=== PATIENT | female | born 1960 | race Caucasian/White ===

== ENCOUNTER 2017-09-09 03:22 | Emergency (ER) | payer OTHER ==
[2017-09-09] MEDS ORDERED: Acetaminophen 500 MG TAB ONE (06:36)
--- NOTE | 2017-09-09 07:58 | RAD ---
RIGHT FOOT 3 VIEWS: HISTORY: Injury, right foot pain. FINDINGS/IMPRESSION: No acute fracture or dislocation is identified. Calcaneal spurs are present. POS: GOLDIE
== END 2017-09-09 06:51 | disposition home or self-care (01) ==
LOC: ERS 03:22
DX: S90.31XA Contusion of right foot, initial encounter (principal); R11.0 Nausea; K21.9 Gastro-esophageal reflux disease without esophagitis; E78.5 Hyperlipidemia, unspecified; F32.9 Major depressive disorder, single episode, unspecified; F17.210 Nicotine dependence, cigarettes, uncomplicated; Z79.899 Other long term (current) drug therapy; W20.8XXA Other cause of strike by thrown, projected or falling object, initial encounter

== ENCOUNTER 2017-10-01 12:22 | Observation (INO) | payer OTHER ==
[2017-10-01] MEDS ORDERED: Sodium Chloride 0.9% 10 ML ONE (12:36)
--- NOTE | 2017-10-01 12:59 | PDOC.FPRHP ---
- History of Present Illness Chief Complaint: dehydration, abnormal wt loss, diarrhea History of Present Illness: This stable 55 yo F with pertinent PMH of morbid obesity, gastric bypass in 1992 , GERD, HTN, Incontinince, COPD, Gastric Ulcer, and depression presents for evaluation of dehydration, diarrhea, and abdominal pain. Patient states she has not been able to eat because of watery diarrhea and stomach. This has been getting progressively worse over 2 weeks. Nothing seems to help. Stacy with urination about a week or so. Increased urinary frequency, incontinent for about 1 week. Generalized pain, comes on randomly. 9/10 pain at the worse. Patient states she has lost about 20 lbs. over the last 2weeks. ED Course: direct admit - Allergies/Adverse Reactions Allergies Allergy/AdvReac Type Severity Reaction Status Date / Time aspirin Allergy Verified 10/01/17 13:03 heparin (porcine) Allergy Verified 10/01/17 13:03 [heparin,porcine] ketorolac tromethamine Allergy Verified 10/01/17 13:03 [From Toradol] metoclopramide HCl Allergy Verified 10/01/17 13:03 [From Reglan] NSAIDS (Non-Steroidal Allergy Verified 10/01/17 13:03 Anti-Inflamma ondansetron HCl Allergy Verified 10/01/17 13:03 [From Zofran (as hydrochloride)] Penicillins Allergy Verified 10/01/17 15:29 prochlorperazine Allergy Verified 10/01/17 13:03 [From Compazine] prochlorperazine edisylate Allergy Verified 10/01/17 13:03 [From Compazine] prochlorperazine maleate Allergy Verified 10/01/17 13:03 [From Compazine] - Home Medications Medication Instructions Recorded Confirmed Type Esomeprazole Magnesium [NexIUM] 40 mg PO BID 05/18/15 10/01/17 History Hyoscyamine Sulfate [Levsin SL] 0.125 mg SL Q6HR PRN 05/18/15 10/01/17 History Promethazine HCl 25 mg PO BID 05/18/15 10/01/17 History Simvastatin 40 mg PO HS 05/18/15 10/01/17 History Cetirizine HCl 10 mg PO DAILY 10/01/17 10/01/17 History DULoxetine [Cymbalta] 30 mg PO DAILY 10/01/17 10/01/17 History DULoxetine [Cymbalta] 30 mg PO DAILY 10/01/17 10/01/17 History Ipratropium-Albuterol [Combivent] 1 puff INH BID 10/01/17 10/01/17 History Loperamide HCl [Loperamide] 2 mg PO TID 10/01/17 10/01/17 History Methocarbamol 750 mg PO Q12HR PRN 10/01/17 10/01/17 History Ranitidine HCl 300 mg PO DAILY 10/01/17 10/01/17 History Sucralfate [Carafate] 1 gm PO QID 10/01/17 10/01/17 History hydrOXYzine HCl [Hydroxyzine HCl] 25 mg PO HS PRN 10/01/17 10/01/17 History - History PMHx: morbid obesity, GERD, HTN, Incontinince, COPD, Gastric Ulcer PSHx: appendectomy, cholecystectomy, gastric bypass FHx: Social: current 1ppd smoker for 20 years, no alcohol, no drugs, lives at home alone, needs help getting home health - Review of Systems General: reports: weight/appetite/sleep changes (20lbs weight), fatigue. denies : fever/chills Eyes: denies: eye pain, vision changes ENT: denies: nasal congestion Respiratory: reports: exercise intolerance. denies: cough, shortness of breath Cardiovascular: denies: chest pain, palpitation, orthopnea Gastrointestinal: reports: nausea, diarrhea, abdominal pain. denies: vomiting, GI bleeding Genitourinary: reports: incontinence, dysuria Skin: denies: rashes, itching Musculoskeletal: denies: pain, tenderness Neurological: denies: numbness, weakness Psychological: denies: anxiety, depression - Vital signs BP: [137/69] HR: [86] RR: [20] Tmax: [98.8] Pox: [96]% on [RA] Wt: [117] - Physical Exam Constitutional: NAD, awake, alert and oriented HEENT: normocephalic and atraumatic, PERRLA, EOMI, other (poor dentition, lips cracked, mouth is dry) Neck: supple, FROM Heart: RRR, normal S1/S2 Lungs: good air movement, other (mild wheezes) Abdomen: other (bowel sounds present, pain is to very light palpation in all regions, no rebound tenderness, [place] +) Musculoskeletal: normal structure, normal tone Neurological: no focal deficit, CN II-XII intact Skin: no rash/lesions, capillary refill <2 seconds Psychiatric: normal mood and affect FMR H&P: Results - Labs Result Diagrams: 10/01/17 13:03 10/01/17 13:03 FMR H&P: A/P - Problem List (1) Morbid obesity with BMI of 45.0-49.9, adult Status: Acute Code(s): E66.01 - MORBID (SEVERE) OBESITY DUE TO EXCESS CALORIES ; Z68.42 - BODY MASS INDEX (BMI) 45.0-49.9, ADULT (2) Tobacco abuse Status: Chronic Code(s): Z72.0 - TOBACCO USE (3) Dehydration Status: Acute Code(s): E86.0 - DEHYDRATION (4) UTI (urinary tract infection) Status: Acute - Plan This is a stable 56 yo F who presents with diarrhea and dehydration, along with UTI symptoms # Dehydration - 1 L NS bolus - 175 ml/hr NS - monitor vital signs - good cap refill # UTI - burning with urination, new incontinence - U/A, Ucx ordered - Rocephin 1g q 24 hr # Diarrhea - FOBT, lactoferrin, C diff assay - Phenergan for nausea, multiple assoc. allergies - history of gastric bypass - KUB to r/o free air or obstruction - CBC, CMP, lipase # Nausea - IV phenergan, multiple allergies including zofran, reglan # GERD - protonix PO # Social - difficulties with obtaining home health - CM consulted # PPx - SCDs, multiple allergies to anti-coag.s low risk # Code - full FMR H&P: Upper Level - Pertinent history 55 year old whtie female with PMH COPD, gastric ulcers, depression, HTN, and GERD p/w with complaint of diarrhea and not tolerating po for approximately 2 weeks. She states she has had periublical pain, suprapubic pain, dysuria, polyuria, incontinence, and heartburn as well as headache. She states urinary symptoms started first. She rates her pain as 9.5/10. She denies vomiting, hematochezia, melena, exacerbation or improvement of pain with meals, chest pain , and dyspnea.She does have intermittent abdominal pain. She also has a history of IBS. She was sent by Dr. Perez at [facility] as he noticed she had an 18 lb weight loss and was not tolerating po - Pertinent findings Exam: Gen: NAD, AAOx4. Obese. Sitting comfortably in bed. Does not appear stated age Eyes: PERRLA, EOMI, nonicteric ENT: MMM, oropharynx clear CV: RRR. No m/r/g. Pulses full and equal in all 4 extremities Resp: CTA-B, no WRR. Nonlabored. Abdomen: Diffusely tender to mild palpation. Nondistended. No guarding or rebound. BS positive x4. Ext: Trace edema bilaterally. Skin: No rash or ulcer. No palpable lesions Neuro: CNII-XII intact, no focal deficits Psych: Mood and affect appropriate - Plan Date/Time: 10/01/17 1257 56 year old white female presents with: 1) Probable viral gastroenteritis with volume depletion - Place on observation medical unit. IV fluids. Treat nausea. Patient has reported allergies to everything but Phenergan. She has a history of bleeding ulcers. Fecal occult blood, stool lactoferrin, C. diff ordered due to prolonged course of symptoms. KUB ordered due to diffuse tenderness and reported pain and heartburn. Vitals stable. Will give iv fluids - no evidence of acute kidney injury 2) Presumed UTI - UTI symptoms started at same time as other symptoms and may be source of many of her complaints. UA, UCx, blood cultures ordered. IV Rocephin started 3) Unintended weight loss - May be secondary to #1 and poor appetite. Will get FOBT. Manage nausea. Advance diet as tolerated 4) Tobacco abuse - Cessation advised 5) GERD - PPI 6) CAD s/p CABG - home meds 7) Morbid obesity - Outpatient follow up I, Geovanni Rodriguez DO, have evaluated this patient and agree with findings/plan as outlined by graduate intern resident. Pertinent changes/additions are listed here. Attending Addendum - Attending Addendum Date/Time: 10/30/17 2777 I personally evaluated the patient and discussed the management with Dr. Kirkland on 10/01/17 I agree with the History, Examination, Assessment and Plan documented above with any addition or exceptions noted below. 57 yo F with pertinent PMH of gastric bypass in 1993, GERD, HTN, Incontinince, COPD, Gastric Ulcer, and depression here with diarrhea and abdominal pain. Findings appear c/w Acute Enteritis likely viral, but multiple abdominal surgeries so consideration for physical alterations in normal GI transit considered.
[2017-10-01] MEDS ORDERED: Sodium Chloride 0.9% 1,000 ML IV SCH ×3 (13:00→15:06)
[2017-10-01] MEDS ORDERED: Acetaminophen 500 MG TAB PO PRN (13:00)
[2017-10-01 13:15] LABS: #Basophils 0.1 thou/uL (0.0-0.2); #Eosinphils 0.5 thou/uL (0.0-0.7); #Lymphocytes 3.8 thou/uL (1.20-3.40); #Monocytes 0.7 thou/uL (0.11-0.59); #Neutrophils 5.8 thou/uL (1.40-6.50); %Basophils 0.6 % (0.0-1.0); %Eosinophils 4.6 % (0.0-10.0); %Lymphocytes 34.6 % (21.0-51.0); %Monocytes 6.5 % (0.0-10.0); %Neutrophils 53.7 % (42.0-75.0); Hemoglobin 14.9 g/dL (12.0-16.0); Mean Corpuscular HGB CONC 33.8 g/dL (32.0-36.0); Mean Corpuscular Hemoglobin 29.5 pg (27.0-31.0); Mean Corpuscular Volume 87.3 fl (81.0-99.0); Mean Platelet Volume 7.9 fL (7.4-10.4); Platelet Count 337 thou/uL (130-400); RBC Distribution Width 12.3 % (11.5-14.5); Red Blood Cell (RBC) Count 5.05 mill/uL (4.20-5.40); White Blood Cell (WBC) Count 10.8 thou/uL (4.8-10.8)
[2017-10-01 13:34] LABS: Albumin 4.3 g/dL (3.5-5.0); Alkaline Phosphatase 94 U/L (40-150); Anion Gap 13 mmol/L (10-20); BUN (Urea Nitrogen) 10 mg/dL (9.8-20.1); Bilirubin, Total 0.7 mg/dL (0.2-1.2); Calc. Creatinine Clearance 153 mL/min (70-130); Calcium 10.4 mg/dL (7.8-10.44); Carbon Dioxide 23 mmol/L (22-29); Chloride 106 mmol/L (98-107); Estimated GFR-MDRD 78; Globulin 3.2 g/dL (2.4-3.5); Glucose 102 mg/dL (70-105); Magnesium 2.1 mg/dL (1.6-2.6); Potassium 3.5 mmol/L (3.5-5.1); Protein, Total 7.5 g/dL (6.0-8.3); Sodium 138 mmol/L (136-145)
[2017-10-01 13:35] LABS: AST (SGOT) 16 U/L (5-34)
[2017-10-01 13:36] LABS: ALT (SGPT) 12 U/L (8-55)
[2017-10-01 13:45] LABS: Lipase 29 U/L (8-78)
[2017-10-01] MEDS ORDERED: Acetaminophen 325 MG TAB PO PRN (14:01)
[2017-10-01] MEDS ORDERED: Loperamide HCl 2 MG CAP PO ONE (14:01)
[2017-10-01] MEDS ORDERED: Promethazine HCl 25 MG/ML VIAL IM/IV PRN (14:11)
[2017-10-01 14:15] LABS: Lactic Acid 1.4 mmol/L (0.5-2.2)
[2017-10-01] MEDS ORDERED: cefTRIAXone\\ROCEPHIN 1 GM in Sodium Chloride 0.9% 100 ML IVPB SCH (14:30)
[2017-10-01] MEDS ORDERED: hydrOXYzine 25 MG TAB PO PRN (14:58)
[2017-10-01] MEDS ORDERED: Loperamide HCl 2 MG CAP PO SCH (15:00)
[2017-10-01] MEDS ORDERED: cefTRIAXone\\ROCEPHIN 1 GM, Syringe 0.4 ML in Sterile Water 9.6 ML SLOW IVP SCH (15:00)
[2017-10-01 18:28] LABS: Bilirubin Small (Negative); Blood, Urine Small (Negative); Clarity CLOUDY (Clear); Glucose, Urine (Dipstick) Negative (Negative); Leukocyte Moderate (Negative); Nitrite Negative (Negative); Protein, Urine (Dipstick) 30 mg/dL (Neg-Trace); Specific Gravity, Urine 1.028 (1.002-1.036); Urobilinogen 0.2 mg/dL (0.2-1.0)
[2017-10-01 18:32] LABS: Pathc Cast-AUWi Flag 2.71 (0-2.49)
[2017-10-01 18:47] LABS: Bacteria/HPF 2+ HPF (None Seen); Hyaline Casts/LPF 4-6 HYALINE CAST LPF (0-3 Hyaline)
--- NOTE | 2017-10-01 19:09 | PDOC.EVN ---
Event Note - Event Note Event Note: Was called to bedside dt pt complaint of abdominal pain and request for morphine. Initial impression found pt laying in bed resting comfortably and in no acute distress. When asked about her symptoms pt indicated that she was having abdominal pain in across her lower abdomen. Pt reported TTP in LLQ, RLQ, RUQ, LUQ, and epigastrum. Auscultation found normal bowel sounds in all quadrants. During auscultation pressure similar to previous palpation was applied to abdomen without tenderness. My impression is that the patient is having cramps dt gastroenteritis, however opiate pain control is not indicated. I explained to the patient that opiates are not appropriate treatment for this pain, however I would write for [place] to help with cramping once she is able to provide a stool sample for the pending studies. Will order KUB for comparison to previous image.
--- NOTE | 2017-10-01 19:12 | RAD ---
PORTABLE AP ABDOMINAL RADIOGRAPH 10/01/17 HISTORY: Multiple abdominal surgeries. Rule out bowel obstruction. COMPARISON: Small bowel study on 02/23/03. Multiple postsurgical changes of the abdomen are seen with surgical clips overlying the abdomen and r adiopaque suture material overlying the left upper quadrant. Multiple ring-like densities overlie the lower abdomen and upper pelvis probably related to mesh material from prior study. There is an overall nonspecific bowel gas pattern. Gaseous distention of large and small loops of bow el are present. Calcifications overlie the pelvis also seen on prior exam likely related to phlebolit hs. Degenerative changes are seen in the spine with left convexed rotoscoliosis of the lumbar spine. IMPRESSION: 1. Nonspecific bowel gas pattern. 2. Postsurgical changes of the abdomen and pelvis. POS: GOLDIE
--- NOTE | 2017-10-01 20:04 | PDOC.EVN ---
Event Note - Event Note Event Note: Residents paged by floor again at about 18:45 that patient was still complaining of significant abdominal pain and was requesting to be seen by different physician, specifically senior doctor on service. I responded to page to evaluate patient. Bedside vital signs at time of exam were BP 137/69, pulse 86, resp 20, pulse ox 96% on RA, and temp 98.0. The patient was lying supine in bed. The patient reported significant abdominal pain that has been present for 2 weeks and was tearful stating that nobody was taking her seriously or treating her pain. She could not quantify or qualify her pain and could not offer a location for the source of her pain. The patient's abdomen was soft, with no guarding or rebound and mild suprapubic TTP, with positive bowel sounds. She, throughout the conversation, complained of both constipation and diarrhea. She stated that the only things that have helped her pain are morphine , stadol, and phenergan. The patient was given a dose of phenergan at 14:40 and was not able to receive repeat dosing until 20:40. The patient threatened that if she did not get adequate pain medication, she would take our her IV and leave the hospital. The patient's nurse, Juani, was present throughout the conversation. We attempted to calm the patient down stating that we wanted to treat her pain and were not at all ignoring her symptoms. We reviewed with the patient that narcotics were not appropriate at this time - the patient has had multiple abdominal surgeries and was complaining of constipation, putting her at risk of SBO or ileus. The patient was agreeable at times of the conversation but ultimately continued to demand stronger pain medication. The patient, patient's nurse, and myself agreed to attempt treatment with a K-pad and to reassess the patient's pain. We mentioned using an oral lidocaine medication like Bentyl or a GI cocktail and the patient again refused, wanting specific pain medication. I informed the patient that it was my medical advice that the patient continue to receive IVF for dehydration, antibiotics for a UTI, and possible further treatment pending stool studies. The patient ultimately agreed with the plan. The residents were then notified at about 19:45 that the patient had decided to leave the hospital AMA. AMA paperwork was being completed at the time the page was returned.
[2017-10-01] MEDS ORDERED: Docusate 100 MG CAP PO SCH (21:00)
[2017-10-01] MEDS ORDERED: Simvastatin 40 MG TAB PO SCH (21:00)
[2017-10-01] MEDS ORDERED: FLU VACC QS2017-18 36 mo. & older 0.5 ML SYRINGE IM ONE (21:00)
[2017-10-01] MEDS ORDERED: Promethazine 25 MG TAB PO SCH (21:00)
[2017-10-01 21:02] VITALS: BP 126/59; TEMP 97.9
[2017-10-02] MEDS ORDERED: Loratadine 10 MG TAB PO SCH (09:00)
[2017-10-02] MEDS ORDERED: DULoxetine 30 MG CAP PO SCH (09:00)
--- NOTE | 2017-10-03 15:31 | EKG ---
Test Reason : Blood Pressure : / mmHG Vent. Rate : 086 BPM Atrial Rate : 086 BPM P-R Int : 140 ms QRS Dur : 088 ms QT Int : 380 ms P-R-T Axes : 031 066 033 degrees QTc Int : 454 ms Normal sinus rhythm Normal ECG When compared with ECG of 07-NOV-2015 20:33, No significant change was found Confirmed by DR. Dimitris MARROQUIN ([id number]) on 10/03/2017 3:30:51 PM Referred By: MADHU Confirmed By:DR. Dimitris MARROQUIN
== END 2017-10-01 20:16 | disposition left against medical advice (07) ==
LOC: 3SE 12:22 → EEVIPCON 12:22
PROVIDERS: ADMIT Family Medicine; ATTEND Family Medicine
DX: R19.7 Diarrhea, unspecified (principal); E86.0 Dehydration; N39.0 Urinary tract infection, site not specified; K21.9 Gastro-esophageal reflux disease without esophagitis; J44.9 Chronic obstructive pulmonary disease, unspecified; F32.9 Major depressive disorder, single episode, unspecified; I10 Essential (primary) hypertension; I25.10 Atherosclerotic heart disease of native coronary artery without angina pectoris; F17.210 Nicotine dependence, cigarettes, uncomplicated; E66.01 Morbid (severe) obesity due to excess calories; Z68.42 Body mass index [BMI] 45.0-49.9, adult; Z88.8 Allergy status to other drugs, medicaments and biological substances; Z79.899 Other long term (current) drug therapy; Z98.84 Bariatric surgery status; Z95.1 Presence of aortocoronary bypass graft; Z53.21 Procedure and treatment not carried out due to patient leaving prior to being seen by health care provider
CPT/HCPCS: 36415; 74018; 80053; 81001; 83605; 83690; 83735; 84443; 85025; 87040; 93005; 93010; 96361; 96374; 96375; A4216; G0378; J0696; J2550

== ENCOUNTER 2018-07-27 20:12 | Emergency (ER) | payer OTHER ==
[2018-07-27] MEDS ORDERED: Acetaminophen 500 MG TAB ONE (21:08)
== END 2018-07-27 20:59 | disposition home or self-care (01) ==
LOC: ERS 20:12
DX: M54.32 Sciatica, left side (principal); I10 Essential (primary) hypertension; E78.5 Hyperlipidemia, unspecified; F17.210 Nicotine dependence, cigarettes, uncomplicated; F32.9 Major depressive disorder, single episode, unspecified; Z71.6 Tobacco abuse counseling
CPT/HCPCS: 99406

== ENCOUNTER 2018-08-16 14:53 | Outpatient (CLI) | payer OTHER | END 2018-08-16 14:54 | disposition home or self-care (01) | LOC: CTENTCT 14:53 | PROVIDERS: ATTEND Otolaryngology Plastic Surgery within the Head & Neck | DX: J32.9 Chronic sinusitis, unspecified (principal) | CPT/HCPCS: 70486 ==

== ENCOUNTER 2019-09-29 15:28 | Emergency (ER) | payer OTHER ==
[2019-09-29] MEDS ORDERED: Acetaminophen 500 MG TAB ONE (17:59)
== END 2019-09-29 18:02 | disposition home or self-care (01) ==
LOC: ERS 15:28
DX: T22.112A Burn of first degree of left forearm, initial encounter (principal); K21.9 Gastro-esophageal reflux disease without esophagitis; E78.5 Hyperlipidemia, unspecified; E78.00 Pure hypercholesterolemia, unspecified; F32.9 Major depressive disorder, single episode, unspecified; F17.210 Nicotine dependence, cigarettes, uncomplicated; X10.1XXA Contact with hot food, initial encounter
CPT/HCPCS: 99283

== ENCOUNTER 2022-05-26 02:34 | Emergency (ER) | payer OTHER ==
[2022-05-26] MEDS ORDERED: Mag-Al 1200 mg/1200 mg/30 ML UDCUP ONE (03:01)
[2022-05-26] MEDS ORDERED: Lidocaine Viscous Sol 2% 15 ml UD Cup ONE (03:01)
[2022-05-26 03:38] LABS: #Basophils 0.1 thou/uL (0.0-0.2); #Eosinphils 0.3 thou/uL (0.0-0.7); #Lymphocytes 3.3 thou/uL (1.20-3.40); #Neutrophils 10.3 thou/uL (1.40-6.50); %Basophils 0.5 % (0.0-1.0); %Monocytes 6.7 % (0.0-10.0); %Neutrophils 68.8 % (42.0-75.0); Mean Corpuscular HGB CONC 32.3 g/dL (32.0-36.0); Mean Corpuscular Hemoglobin 27.1 pg (27.0-31.0); Mean Corpuscular Volume 83.9 fl (78.0-98.0); Mean Platelet Volume 8.3 fL (7.4-10.4); Platelet Count 289 thou/uL (130-400); RBC Distribution Width 14.4 % (11.5-14.5); Red Blood Cell (RBC) Count 5.17 mill/uL (4.20-5.40)
[2022-05-26 03:58] LABS: ALT (SGPT) 10 U/L (8-55); AST (SGOT) 21 U/L (5-34); Alkaline Phosphatase 127 U/L (40-110); Anion Gap 14 mmol/L (10-20); BUN (Urea Nitrogen) 7 mg/dL (9.8-20.1); Bilirubin, Total 1.1 mg/dL (0.2-1.2); Calc. Creatinine Clearance 0 mL/min (70-130); Calcium 10.8 mg/dL (7.8-10.44); Carbon Dioxide 23 mmol/L (22-29); Chloride 101 mmol/L (98-107); Estimated GFR 80; Globulin 3.7 g/dL (2.4-3.5); Glucose 195 mg/dL (70-105); Lipase 21 U/L (8-78); Potassium 3.4 mmol/L (3.5-5.1); Protein, Total 7.7 g/dL (6.0-8.3); Sodium 135 mmol/L (136-145)
== END 2022-05-26 05:20 | disposition home or self-care (01) ==
LOC: ERS 02:34
DX: L03.311 Cellulitis of abdominal wall (principal); R11.2 Nausea with vomiting, unspecified; K21.9 Gastro-esophageal reflux disease without esophagitis; E78.5 Hyperlipidemia, unspecified; E78.00 Pure hypercholesterolemia, unspecified; F17.210 Nicotine dependence, cigarettes, uncomplicated
CPT/HCPCS: 36415; 80053; 83605; 83690; 85025

== ENCOUNTER 2022-05-26 14:17 | Inpatient (IN) | payer OTHER ==
[~2022-05-26 14:17] MED LIST: Iopamidol-370 76% 500 ML 1 ML ONE
[2022-05-26] MEDS ORDERED: Morphine 4 MG/ML VIAL ONE (15:06)
[2022-05-26] MEDS ORDERED: Clindamycin/D5W 900 mg/50 ml Premix Bag ONE (15:09)
[2022-05-26 15:12] LABS: #Basophils 0.1 thou/uL (0.0-0.2); #Eosinphils 0.4 thou/uL (0.0-0.7); #Monocytes 1.2 thou/uL (0.11-0.59); #Neutrophils 10.9 thou/uL (1.40-6.50); %Basophils 0.5 % (0.0-1.0); %Eosinophils 2.2 % (0.0-10.0); %Lymphocytes 24.3 % (21.0-51.0); %Monocytes 7.2 % (0.0-10.0); %Neutrophils 65.8 % (42.0-75.0); Mean Corpuscular HGB CONC 31.9 g/dL (32.0-36.0); Mean Corpuscular Hemoglobin 27.1 pg (27.0-31.0); Mean Platelet Volume 8.3 fL (7.4-10.4); Platelet Count 351 thou/uL (130-400); RBC Distribution Width 14.7 % (11.5-14.5); Red Blood Cell (RBC) Count 5.15 mill/uL (4.20-5.40); White Blood Cell (WBC) Count 16.6 thou/uL (4.8-10.8)
[2022-05-26] MEDS ORDERED: Promethazine HCl 25 MG in Sodium Chloride 0.9% 50 ML IVPB SCH (15:15)
[2022-05-26 15:24] LABS: INR-International Normal Ratio 1.2; PTT 35.8 sec (22.9-36.1); Prothrombin Time 15.3 sec (12.0-14.7)
[2022-05-26 15:34] LABS: ALT (SGPT) 11 U/L (8-55); AST (SGOT) 18 U/L (5-34); Albumin 4.1 g/dL (3.5-5.0); Alkaline Phosphatase 138 U/L (40-110); Anion Gap 14 mmol/L (10-20); BUN (Urea Nitrogen) 10 mg/dL (9.8-20.1); Bilirubin, Total 1.4 mg/dL (0.2-1.2); Calc. Creatinine Clearance 0 mL/min (70-130); Calcium 10.9 mg/dL (7.8-10.44); Carbon Dioxide 27 mmol/L (22-29); Chloride 99 mmol/L (98-107); Estimated GFR 67; Globulin 3.9 g/dL (2.4-3.5); Glucose 204 mg/dL (70-105); Potassium 3.5 mmol/L (3.5-5.1); Sodium 136 mmol/L (136-145)
[2022-05-26] MEDS ORDERED: VANCOMYCIN 2 GRAM/500 ML BAG 2 GM in Premix Bag 1 BAG IVPB SCH (17:15)
[2022-05-26 18:05] LABS: Lactic Acid 1.5 mmol/L (0.5-2.2)
[2022-05-26] MEDS ORDERED: Dextrose 50% Abboject 50 ML SYRINGE SLOW IVP PRN (19:40)
[2022-05-26] MEDS ORDERED: Dextrose 5% in Water 1,000 ML IV PRN (19:40)
[2022-05-26] MEDS ORDERED: Acetaminophen 325 MG TAB PO PRN (19:42)
[2022-05-26] MEDS ORDERED: HumaLOG 300 UNITS/3 ML VIAL SC PRN ×2 (19:45)
[2022-05-26 20:10] LABS: Hemoglobin A1c 7.3 % (4.0-6.0)
[2022-05-26 20:21] LABS: Magnesium 1.9 mg/dL (1.6-2.6)
[2022-05-26] MEDS: Lactated Ringer's 1,000 ML IV SCH (20:22)
[2022-05-26] MEDS ORDERED: HYDROcodone/Acetaminophen 5/325 mg Tablet PO PRN (20:41)
[2022-05-26] MEDS: Promethazine HCl 12.5 MG in Sodium Chloride 0.9% 50 ML IVPB PRN (21:18)
[2022-05-26] MEDS: Insulin Glargine 30 UNITS/0.3 ML VIAL SC SCH (21:28)
[2022-05-26] MEDS ORDERED: Polyethylene Glycol 3350 17 GM Packet PO PRN (21:47)
[2022-05-26] MEDS: Morphine 4 MG/ML VIAL SLOW IVP PRN (21:56)
[2022-05-26] MEDS ORDERED: Pantoprazole 40 MG VIAL IVP SCH (22:00)
[2022-05-26 23:08] VITALS: BMI 39.0
[2022-05-27] MEDS: Morphine 4 MG/ML VIAL SLOW IVP PRN ×4 (01:31→19:36)
[2022-05-27] MEDS: Lactated Ringer's 1,000 ML IV SCH ×4 (01:55→22:24)
[2022-05-27] MEDS: Promethazine HCl 12.5 MG in Sodium Chloride 0.9% 50 ML IVPB PRN ×2 (02:59→10:13)
[2022-05-27 06:59] LABS: #Basophils 0.1 thou/uL (0.0-0.2); #Eosinphils 0.5 thou/uL (0.0-0.7); #Lymphocytes 5.6 thou/uL (1.20-3.40); #Monocytes 1.1 thou/uL (0.11-0.59); #Neutrophils 6.6 thou/uL (1.40-6.50); %Basophils 0.7 % (0.0-1.0); %Eosinophils 3.3 % (0.0-10.0); %Lymphocytes 40.3 % (21.0-51.0); %Monocytes 8.1 % (0.0-10.0); %Neutrophils 47.7 % (42.0-75.0); Hemoglobin 12.3 g/dL (12.0-16.0); Mean Corpuscular HGB CONC 31.8 g/dL (32.0-36.0); Mean Corpuscular Hemoglobin 27.6 pg (27.0-31.0); Mean Corpuscular Volume 86.7 fl (78.0-98.0); Mean Platelet Volume 8.9 fL (7.4-10.4); Platelet Count 235 thou/uL (130-400); RBC Distribution Width 14.7 % (11.5-14.5); Red Blood Cell (RBC) Count 4.45 mill/uL (4.20-5.40); White Blood Cell (WBC) Count 13.9 thou/uL (4.8-10.8)
[2022-05-27 07:33] LABS: ALT (SGPT) 8 U/L (8-55); AST (SGOT) 15 U/L (5-34); Albumin 3.3 g/dL (3.5-5.0); Alkaline Phosphatase 108 U/L (40-110); Anion Gap 12 mmol/L (10-20); BUN (Urea Nitrogen) 8 mg/dL (9.8-20.1); Calc. Creatinine Clearance 160 mL/min (70-130); Calcium 9.7 mg/dL (7.8-10.44); Carbon Dioxide 23 mmol/L (22-29); Chloride 105 mmol/L (98-107); Estimated GFR 97; Globulin 3.1 g/dL (2.4-3.5); Glucose 119 mg/dL (70-105); Potassium 3.6 mmol/L (3.5-5.1); Protein, Total 6.4 g/dL (6.0-8.3); Sodium 136 mmol/L (136-145)
[2022-05-27] MEDS: Enoxaparin Sodium 40 MG/0.4 ML SYRINGE SC SCH (08:41)
[2022-05-27] MEDS: Pantoprazole 40 MG VIAL IVP SCH (08:43)
[2022-05-27] MEDS ORDERED: Promethazine HCl 25 MG/ML VIAL IM PRN (10:02)
[2022-05-27] MEDS: VANCOMYCIN 2 GRAM/500 ML BAG 2 GM in Premix Bag 1 BAG IVPB SCH ×2 (11:39→23:08)
[2022-05-27] MEDS ORDERED: Acetaminophen 325 MG TAB PO PRN (11:53)
[2022-05-27] MEDS ORDERED: diphenhydrAMINE 50 MG CAP PO PRN (12:42)
[2022-05-27] MEDS: Cefepime 2 GM in Sodium Chloride 0.9% 100 ML IVPB SCH (13:19)
[2022-05-27] MEDS: Gabapentin 100 MG CAP PO SCH ×3 (15:57→19:44)
[2022-05-27] MEDS: Insulin Glargine 30 UNITS/0.3 ML VIAL SC SCH (19:39)
[2022-05-27] MEDS: metFORMIN 500 MG TAB PO SCH (19:39)
[2022-05-27] MEDS ORDERED: hydrALAZINE 20 MG/ML VIAL SLOW IVP PRN (22:48)
[2022-05-27] MEDS: HYDROcodone/Acetaminophen 5/325 mg Tablet PO PRN (22:55)
[2022-05-27] MEDS ORDERED: hydrALAZINE 20 MG/ML VIAL SLOW IVP SCH (23:00)
[2022-05-28] MEDS: Cefepime 2 GM in Sodium Chloride 0.9% 100 ML IVPB SCH (01:08)
[2022-05-28] MEDS: HYDROcodone/Acetaminophen 5/325 mg Tablet PO PRN (04:44)
[2022-05-28] MEDS: Lactated Ringer's 1,000 ML IV SCH ×2 (05:03→08:14)
[2022-05-28] MEDS ORDERED: Levothyroxine Sodium 25 MCG TAB PO SCH (06:00)
[2022-05-28] MEDS ORDERED: Levothyroxine Sodium 112 MCG TAB PO SCH (06:00)
[2022-05-28 06:09] VITALS: TEMP 98.5
[2022-05-28 06:52] LABS: #Basophils 0.1 thou/uL (0.0-0.2); #Eosinphils 0.3 thou/uL (0.0-0.7); #Lymphocytes 2.8 thou/uL (1.20-3.40); #Monocytes 0.6 thou/uL (0.11-0.59); #Neutrophils 4.1 thou/uL (1.40-6.50); %Basophils 0.9 % (0.0-1.0); %Eosinophils 3.5 % (0.0-10.0); %Lymphocytes 35.6 % (21.0-51.0); %Monocytes 7.7 % (0.0-10.0); %Neutrophils 52.4 % (42.0-75.0); Hemoglobin 11.9 g/dL (12.0-16.0); Mean Corpuscular HGB CONC 31.7 g/dL (32.0-36.0); Mean Corpuscular Hemoglobin 27.4 pg (27.0-31.0); Mean Corpuscular Volume 86.5 fl (78.0-98.0); Mean Platelet Volume 8.5 fL (7.4-10.4); Platelet Count 219 thou/uL (130-400); RBC Distribution Width 14.6 % (11.5-14.5); Red Blood Cell (RBC) Count 4.34 mill/uL (4.20-5.40); White Blood Cell (WBC) Count 7.8 thou/uL (4.8-10.8)
[2022-05-28 07:14] LABS: ALT (SGPT) 10 U/L (8-55); AST (SGOT) 17 U/L (5-34); Albumin 3.3 g/dL (3.5-5.0); Alkaline Phosphatase 102 U/L (40-110); Anion Gap 11 mmol/L (10-20); BUN (Urea Nitrogen) 7 mg/dL (9.8-20.1); Bilirubin, Total 0.9 mg/dL (0.2-1.2); Calc. Creatinine Clearance 153 mL/min (70-130); Calcium 9.6 mg/dL (7.8-10.44); Carbon Dioxide 26 mmol/L (22-29); Chloride 104 mmol/L (98-107); Estimated GFR 93; Glucose 131 mg/dL (70-105); Potassium 3.5 mmol/L (3.5-5.1); Protein, Total 6.3 g/dL (6.0-8.3); Sodium 137 mmol/L (136-145)
[2022-05-28] MEDS: Pantoprazole 40 MG VIAL IVP SCH (08:13)
[2022-05-28] MEDS: metFORMIN 500 MG TAB PO SCH (08:13)
[2022-05-28] MEDS: Gabapentin 100 MG CAP PO SCH (08:13)
[2022-05-28] MEDS: Enoxaparin Sodium 40 MG/0.4 ML SYRINGE SC SCH (08:14)
[2022-05-28 08:29] VITALS: BP 174/97
[2022-05-28] MEDS ORDERED: DULoxetine 60 MG CAP PO SCH (09:00)
[2022-05-28] MEDS ORDERED: Ergocalciferol 1.25 MG(50,000 UNITS) CAP PO SCH (09:00)
[2022-05-28] MEDS ORDERED: Folic Acid 1 MG TAB PO SCH (09:00)
[2022-05-28 10:25] LABS: Vancomycin, Trough 20.9 ug/mL
[2022-05-28] MEDS ORDERED: Vancomycin 1.5 GRAM/300 ML BAG 1.5 GM in Premix Bag 1 BAG IVPB SCH (11:00)
== END 2022-05-28 11:33 | disposition home or self-care (01) | DRG 872 ==
LOC: ERS 14:17 → T4-B 18:18 → OBSVTOIN 05-28 09:23
PROVIDERS: ADMIT Student in an Organized Health Care Education/Training Program; ATTEND Student in an Organized Health Care Education/Training Program
DX: A41.9 Sepsis, unspecified organism (principal); L03.311 Cellulitis of abdominal wall; M79.3 Panniculitis, unspecified; Z20.822 Contact with and (suspected) exposure to COVID-19; E66.01 Morbid (severe) obesity due to excess calories; E11.9 Type 2 diabetes mellitus without complications; R94.31 Abnormal electrocardiogram [ECG] [EKG]; N20.0 Calculus of kidney; N28.1 Cyst of kidney, acquired; J44.9 Chronic obstructive pulmonary disease, unspecified; E78.5 Hyperlipidemia, unspecified; E03.9 Hypothyroidism, unspecified; K21.9 Gastro-esophageal reflux disease without esophagitis; F32.9 Major depressive disorder, single episode, unspecified; F43.10 Post-traumatic stress disorder, unspecified; G89.29 Other chronic pain; E83.52 Hypercalcemia; E55.9 Vitamin D deficiency, unspecified; Z88.8 Allergy status to other drugs, medicaments and biological substances; Z88.6 Allergy status to analgesic agent; Z88.0 Allergy status to penicillin; Z79.899 Other long term (current) drug therapy; Z91.14 Patient's other noncompliance with medication regimen; Z79.890 Hormone replacement therapy; Z79.84 Long term (current) use of oral hypoglycemic drugs; Z98.84 Bariatric surgery status; Z90.49 Acquired absence of other specified parts of digestive tract; Z87.11 Personal history of peptic ulcer disease; Z82.49 Family history of ischemic heart disease and other diseases of the circulatory system; Z87.891 Personal history of nicotine dependence; R11.2 Nausea with vomiting, unspecified; E78.00 Pure hypercholesterolemia, unspecified
CPT/HCPCS: 36415; 36416; 71045; 74177; 80053; 80202; 83036; 83605; 83615; 83690; 83735; 84484; 85025; 85610; 85730; 86850; 86900; 86901; 87040; 87631; 93005; 94640; 96365; 96366; 96367; 96372; 96375; 96376; 97139; 99284; C9113; G0378; J0360; J0692; J1650; J1815; J2270; J2550; J3370; J3490; J7120; Q9967; U0003; U0005

== ENCOUNTER 2022-08-23 03:54 | Emergency (ER) | payer OTHER ==
[2022-08-23 07:56] LABS: #Basophils 0.1 thou/uL (0.0-0.2); #Eosinphils 0.4 thou/uL (0.0-0.7); #Lymphocytes 3.3 thou/uL (1.20-3.40); #Monocytes 0.6 thou/uL (0.11-0.59); #Neutrophils 4.2 thou/uL (1.40-6.50); %Basophils 0.7 % (0.0-1.0); %Eosinophils 4.3 % (0.0-10.0); %Lymphocytes 38.3 % (21.0-51.0); %Neutrophils 49.7 % (42.0-75.0); Hemoglobin 11.8 g/dL (12.0-16.0); Mean Corpuscular HGB CONC 32.2 g/dL (32.0-36.0); Mean Corpuscular Hemoglobin 26.4 pg (27.0-31.0); Mean Corpuscular Volume 82.1 fl (78.0-98.0); Mean Platelet Volume 7.5 fL (7.4-10.4); Platelet Count 254 10x3/uL (130-400); RBC Distribution Width 15.1 % (11.5-14.5); Red Blood Cell (RBC) Count 4.47 mill/uL (4.20-5.40); White Blood Cell (WBC) Count 8.5 10x3/uL (4.8-10.8)
[2022-08-23 08:17] LABS: ALT (SGPT) 10 U/L (8-55); AST (SGOT) 21 U/L (5-34); Albumin 3.7 g/dL (3.5-5.0); Alkaline Phosphatase 112 U/L (40-110); Anion Gap 15 mmol/L (10-20); BUN (Urea Nitrogen) 6 mg/dL (9.8-20.1); Bilirubin, Total 0.8 mg/dL (0.2-1.2); CK (CPK) 53 U/L (29-168); Calc. Creatinine Clearance 0 mL/min (70-130); Carbon Dioxide 21 mmol/L (22-29); Chloride 105 mmol/L (98-107); Estimated GFR 100; Globulin 3.7 g/dL (2.4-3.5); Glucose 120 mg/dL (70-105); Lipase 29 U/L (8-78); Potassium 3.7 mmol/L (3.5-5.1); Protein, Total 7.4 g/dL (6.0-8.3); Sodium 137 mmol/L (136-145)
[2022-08-23 08:47] LABS: Bilirubin Negative (Negative); Blood, Urine Negative (Negative); Clarity Clear (Clear); Glucose, Urine (Dipstick) Normal (Negative); Ketone, Urine Negative (Negative); Leukocyte Negative Leu/uL (Negative); Nitrite Negative (Negative); Protein, Urine (Dipstick) Negative (Neg-Trace); Urobilinogen Normal mg/dL (Less than 2)
== END 2022-08-23 09:15 | disposition home or self-care (01) ==
LOC: ERS 03:54
DX: R53.1 Weakness (principal); K21.9 Gastro-esophageal reflux disease without esophagitis; E78.00 Pure hypercholesterolemia, unspecified; F17.210 Nicotine dependence, cigarettes, uncomplicated
CPT/HCPCS: 36415; 51701; 71045; 80053; 81003; 82550; 83690; 83880; 84484; 85025; 93005

== ENCOUNTER 2022-09-04 04:47 | Inpatient (IN) | payer OTHER ==
[2022-09-04] MEDS ORDERED: Morphine 4 MG/ML VIAL ONE (05:38)
[2022-09-04] MEDS ORDERED: Cefepime 2 GM VIAL ONE (05:39)
[2022-09-04 05:45] LABS: #Eosinphils 0.2 thou/uL (0.0-0.7); #Lymphocytes 2.5 thou/uL (1.20-3.40); #Monocytes 1.4 thou/uL (0.11-0.59); #Neutrophils 6.6 thou/uL (1.40-6.50); %Basophils 0.2 % (0.0-1.0); %Eosinophils 1.7 % (0.0-10.0); %Lymphocytes 23.7 % (21.0-51.0); %Monocytes 13.1 % (0.0-10.0); %Neutrophils 61.3 % (42.0-75.0); Hemoglobin 11.7 g/dL (12.0-16.0); Mean Corpuscular HGB CONC 31.8 g/dL (32.0-36.0); Mean Corpuscular Hemoglobin 26.3 pg (27.0-31.0); Mean Corpuscular Volume 82.5 fl (78.0-98.0); Mean Platelet Volume 10.2 fL (7.4-10.4); Platelet Count 205 10x3/uL (130-400); RBC Distribution Width 15.3 % (11.5-14.5); Red Blood Cell (RBC) Count 4.47 mill/uL (4.20-5.40); White Blood Cell (WBC) Count 10.7 10x3/uL (4.8-10.8)
[2022-09-04] MEDS ORDERED: VANCOMYCIN 2 GRAM/500 ML BAG 2 GM in Premix Bag 1 BAG IVPB SCH ×2 (06:00→18:00)
[2022-09-04] MEDS ORDERED: Promethazine HCl 25 MG in Sodium Chloride 0.9% 50 ML IVPB SCH ×2 (06:00→10:00)
[2022-09-04 06:06] LABS: Bacteria/HPF 4+ HPF (None Seen); Bilirubin Negative (Negative); Blood, Urine Negative (Negative); Clarity Clear (Clear); Glucose, Urine (Dipstick) Normal (Negative); Ketone, Urine Negative (Negative); Leukocyte 25 Leu/uL (Negative); Nitrite 1+ (Negative); Protein, Urine (Dipstick) 50 mg/dL (Neg-Trace); RBC/HPF 0-3 HPF (0-3); Specific Gravity, Urine 1.023 (1.002-1.036); Squamous Epithelial 0-3 HPF (0-3); Urobilinogen Normal mg/dL (Less than 2); pH, Urine 5.5 (5.0-9.0)
[2022-09-04 06:12] LABS: ALT (SGPT) 14 U/L (8-55); AST (SGOT) 23 U/L (5-34); Albumin 3.6 g/dL (3.5-5.0); Alkaline Phosphatase 103 U/L (40-110); Anion Gap 15 mmol/L (10-20); BUN (Urea Nitrogen) 38 mg/dL (9.8-20.1); Bilirubin, Total 1.2 mg/dL (0.2-1.2); Calc. Creatinine Clearance 0 mL/min (70-130); Calcium 11.3 mg/dL (7.8-10.44); Carbon Dioxide 26 mmol/L (22-29); Chloride 100 mmol/L (98-107); Estimated GFR 87; Globulin 3.9 g/dL (2.4-3.5); Glucose 162 mg/dL (70-105); Lipase 76 U/L (8-78); Protein, Total 7.5 g/dL (6.0-8.3); Sodium 137 mmol/L (136-145)
[2022-09-04] MEDS ORDERED: Dextrose 5% in Water 1,000 ML IV PRN (10:11)
[2022-09-04] MEDS ORDERED: HumaLOG 300 UNITS/3 ML VIAL SC PRN ×2 (10:11)
[2022-09-04] MEDS ORDERED: Dextrose 50% Abboject 50 ML SYRINGE SLOW IVP PRN (10:11)
[2022-09-04] MEDS ORDERED: Iopamidol-370 76% 500 ML 1 ML ONE (10:16)
[2022-09-04] MEDS ORDERED: Ipratropium/Albuterol 3 ML NEB NEB PRN (10:25)
[2022-09-04] MEDS ORDERED: Acetaminophen 325 MG TAB ONE (13:09)
[2022-09-04] MEDS: Acetaminophen 325 MG TAB PO PRN (13:13)
[2022-09-04] MEDS: Sodium Chloride 0.9% 1,000 ML IV SCH ×2 (13:13→19:49)
[2022-09-04 13:17] VITALS: BMI 41.3
[2022-09-04] MEDS: Nystatin 500,000 UNITS/5 ML UDCUP SSW SCH ×3 (15:09→19:44)
[2022-09-04] MEDS ORDERED: FLU VACC QS2022-23(6MOS UP)/PF 60 MCG/0.5 ML SYRINGE IM ONE (16:00)
[2022-09-04] MEDS: Cefepime 2 GM in Sodium Chloride 0.9% 100 ML IVPB SCH (17:36)
[2022-09-04] MEDS: Clotrimazole 1 % Cream 30 GM TUBE TOP SCH (19:45)
[2022-09-04] MEDS: Promethazine HCl 12.5 MG in Sodium Chloride 0.9% 50 ML IVPB PRN (19:46)
[2022-09-04] MEDS: VANCOMYCIN 2 GRAM/500 ML BAG 2 GM in Premix Bag 1 BAG IVPB SCH (19:47)
[2022-09-04] MEDS: hydrOXYzine 25 MG TAB PO PRN (23:06)
[2022-09-04] MEDS ORDERED: Promethazine 25 MG TAB PO SCH (23:45)
[2022-09-04] MEDS ORDERED: Phenazopyridine HCl 100 MG TAB PO SCH (23:59)
[2022-09-05] MEDS: Promethazine HCl 12.5 MG in Sodium Chloride 0.9% 50 ML IVPB PRN ×4 (02:02→20:27)
[2022-09-05] MEDS: Cefepime 2 GM in Sodium Chloride 0.9% 100 ML IVPB SCH ×2 (04:38→17:32)
[2022-09-05] MEDS: Levothyroxine Sodium 112 MCG TAB PO SCH (04:38)
[2022-09-05] MEDS: Levothyroxine Sodium 25 MCG TAB PO SCH (04:38)
[2022-09-05] MEDS: Sodium Chloride 0.9% 1,000 ML IV SCH ×2 (04:39→14:38)
[2022-09-05] MEDS ORDERED: Levothyroxine Sodium 112 MCG TAB PO SCH (06:00)
[2022-09-05 06:03] LABS: #Eosinphils 0.2 thou/uL (0.0-0.7); #Lymphocytes 1.9 thou/uL (1.20-3.40); #Monocytes 0.8 thou/uL (0.11-0.59); #Neutrophils 2.7 thou/uL (1.40-6.50); %Basophils 0.3 % (0.0-1.0); %Eosinophils 4.1 % (0.0-10.0); %Lymphocytes 34.5 % (21.0-51.0); %Monocytes 13.6 % (0.0-10.0); %Neutrophils 47.6 % (42.0-75.0); Hemoglobin 10.5 g/dL (12.0-16.0); Mean Corpuscular Hemoglobin 27.1 pg (27.0-31.0); Mean Corpuscular Volume 84.7 fl (78.0-98.0); Mean Platelet Volume 10.2 fL (7.4-10.4); Platelet Count 141 10x3/uL (130-400); RBC Distribution Width 15.2 % (11.5-14.5); Red Blood Cell (RBC) Count 3.86 mill/uL (4.20-5.40); White Blood Cell (WBC) Count 5.6 10x3/uL (4.8-10.8)
[2022-09-05 06:16] LABS: Anion Gap 12 mmol/L (10-20); BUN (Urea Nitrogen) 26 mg/dL (9.8-20.1); Calc. Creatinine Clearance 210 mL/min (70-130); Carbon Dioxide 23 mmol/L (22-29); Chloride 109 mmol/L (98-107); Potassium 3.6 mmol/L (3.5-5.1); Sodium 140 mmol/L (136-145)
[2022-09-05 06:17] LABS: Calcium 10.4 mg/dL (7.8-10.44); Estimated GFR 104; Glucose 143 mg/dL (70-105)
[2022-09-05] MEDS ORDERED: Calcium Carbonate 500 MG ChewTAB PO PRN (06:20)
[2022-09-05] MEDS: Nystatin 500,000 UNITS/5 ML UDCUP SSW SCH ×5 (08:37→19:52)
[2022-09-05] MEDS: Clotrimazole 1 % Cream 30 GM TUBE TOP SCH ×2 (08:38→10:02)
[2022-09-05] MEDS: DULoxetine 60 MG CAP PO SCH (08:38)
[2022-09-05] MEDS: Phenazopyridine HCl 100 MG TAB PO SCH ×3 (08:38→17:28)
[2022-09-05] MEDS: Acetaminophen 325 MG TAB PO PRN ×2 (08:45→15:54)
[2022-09-05] MEDS ORDERED: DULoxetine 60 MG CAP PO SCH (09:00)
[2022-09-05] MEDS: VANCOMYCIN 2 GRAM/500 ML BAG 2 GM in Premix Bag 1 BAG IVPB SCH (10:02)
[2022-09-05 19:39] LABS: Vancomycin, Trough 24.6 ug/mL
[2022-09-05] MEDS: Vancomycin 1.5 GRAM/300 ML BAG 1.5 GM in Premix Bag 1 BAG IVPB SCH (20:27)
[2022-09-05] MEDS: Gabapentin 100 MG CAP PO SCH (20:27)
[2022-09-05] MEDS: hydrOXYzine 25 MG TAB PO PRN (20:38)
[2022-09-05] MEDS: Nystatin Powder 15 GM BOT TOP SCH (20:39)
[2022-09-06] MEDS: Sodium Chloride 0.9% 1,000 ML IV SCH ×3 (03:39→20:33)
[2022-09-06] MEDS: Cefepime 2 GM in Sodium Chloride 0.9% 100 ML IVPB SCH ×2 (06:15→17:26)
[2022-09-06] MEDS: Levothyroxine Sodium 25 MCG TAB PO SCH (06:15)
[2022-09-06] MEDS: Levothyroxine Sodium 112 MCG TAB PO SCH (06:15)
[2022-09-06 06:42] LABS: #Eosinphils 0.2 thou/uL (0.0-0.7); #Lymphocytes 1.4 thou/uL (1.20-3.40); #Monocytes 0.6 thou/uL (0.11-0.59); #Neutrophils 2.3 thou/uL (1.40-6.50); %Basophils 0.5 % (0.0-1.0); %Eosinophils 4.8 % (0.0-10.0); %Lymphocytes 30.9 % (21.0-51.0); %Monocytes 13.6 % (0.0-10.0); %Neutrophils 50.3 % (42.0-75.0); Mean Corpuscular HGB CONC 32.1 g/dL (32.0-36.0); Mean Corpuscular Hemoglobin 27.1 pg (27.0-31.0); Mean Corpuscular Volume 84.5 fl (78.0-98.0); Mean Platelet Volume 10.2 fL (7.4-10.4); Platelet Count 126 10x3/uL (130-400); White Blood Cell (WBC) Count 4.5 10x3/uL (4.8-10.8)
[2022-09-06 07:05] LABS: Anion Gap 11 mmol/L (10-20); BUN (Urea Nitrogen) 17 mg/dL (9.8-20.1); Calc. Creatinine Clearance 231 mL/min (70-130); Calcium 10.1 mg/dL (7.8-10.44); Carbon Dioxide 24 mmol/L (22-29); Chloride 109 mmol/L (98-107); Estimated GFR 106; Glucose 135 mg/dL (70-105); Potassium 3.6 mmol/L (3.5-5.1); Sodium 140 mmol/L (136-145)
[2022-09-06] MEDS: Vancomycin 1.5 GRAM/300 ML BAG 1.5 GM in Premix Bag 1 BAG IVPB SCH ×2 (08:45→20:27)
[2022-09-06] MEDS: Nystatin 500,000 UNITS/5 ML UDCUP SSW SCH ×5 (08:45→20:30)
[2022-09-06] MEDS: DULoxetine 60 MG CAP PO SCH (08:46)
[2022-09-06] MEDS: Gabapentin 100 MG CAP PO SCH ×3 (08:46→20:28)
[2022-09-06] MEDS: Phenazopyridine HCl 100 MG TAB PO SCH ×3 (08:46→17:26)
[2022-09-06] MEDS: Nystatin Powder 15 GM BOT TOP SCH ×2 (08:54→20:29)
[2022-09-06] MEDS ORDERED: Ergocalciferol 1.25 MG(50,000 UNITS) CAP PO SCH (09:00)
[2022-09-06] MEDS: Promethazine HCl 12.5 MG in Sodium Chloride 0.9% 50 ML IVPB PRN (14:16)
[2022-09-06] MEDS: Acetaminophen 325 MG TAB PO PRN (15:29)
[2022-09-06] MEDS: hydrOXYzine 25 MG TAB PO PRN (20:37)
[2022-09-07] MEDS: Cefepime 2 GM in Sodium Chloride 0.9% 100 ML IVPB SCH ×2 (05:27→16:57)
[2022-09-07] MEDS: Acetaminophen 325 MG TAB PO PRN ×3 (05:28→16:57)
[2022-09-07] MEDS: Levothyroxine Sodium 112 MCG TAB PO SCH (05:28)
[2022-09-07] MEDS: Levothyroxine Sodium 25 MCG TAB PO SCH (05:28)
[2022-09-07] MEDS: Promethazine HCl 12.5 MG in Sodium Chloride 0.9% 50 ML IVPB PRN ×3 (06:35→20:28)
[2022-09-07 06:51] LABS: #Eosinphils 0.2 thou/uL (0.0-0.7); #Lymphocytes 1.7 thou/uL (1.20-3.40); #Monocytes 0.6 thou/uL (0.11-0.59); #Neutrophils 2.6 thou/uL (1.40-6.50); %Lymphocytes 32.9 % (21.0-51.0); %Monocytes 11.4 % (0.0-10.0); %Neutrophils 50.6 % (42.0-75.0); Hemoglobin 10.8 g/dL (12.0-16.0); Mean Corpuscular HGB CONC 31.1 g/dL (32.0-36.0); Mean Corpuscular Hemoglobin 26.4 pg (27.0-31.0); Mean Corpuscular Volume 84.8 fl (78.0-98.0); Mean Platelet Volume 10.2 fL (7.4-10.4); Platelet Count 140 10x3/uL (130-400); Red Blood Cell (RBC) Count 4.09 mill/uL (4.20-5.40); White Blood Cell (WBC) Count 5.2 10x3/uL (4.8-10.8)
[2022-09-07 07:16] LABS: Anion Gap 12 mmol/L (10-20); BUN (Urea Nitrogen) 14 mg/dL (9.8-20.1); Calc. Creatinine Clearance 222 mL/min (70-130); Calcium 10.7 mg/dL (7.8-10.44); Carbon Dioxide 23 mmol/L (22-29); Chloride 108 mmol/L (98-107); Estimated GFR 105; Glucose 126 mg/dL (70-105); Potassium 3.5 mmol/L (3.5-5.1); Sodium 139 mmol/L (136-145)
[2022-09-07] MEDS: DULoxetine 60 MG CAP PO SCH (08:24)
[2022-09-07] MEDS: Gabapentin 100 MG CAP PO SCH ×3 (08:24→20:26)
[2022-09-07] MEDS: Phenazopyridine HCl 100 MG TAB PO SCH ×3 (08:24→16:58)
[2022-09-07] MEDS: Nystatin 500,000 UNITS/5 ML UDCUP SSW SCH ×4 (08:25→20:30)
[2022-09-07] MEDS: Nystatin Powder 15 GM BOT TOP SCH ×2 (08:26→20:29)
[2022-09-07 09:11] LABS: Vancomycin, Trough 18.4 ug/mL
[2022-09-07] MEDS: Vancomycin 1.5 GRAM/300 ML BAG 1.5 GM in Premix Bag 1 BAG IVPB SCH (09:37)
[2022-09-07] MEDS: Sodium Chloride 0.9% 1,000 ML IV SCH (16:00)
[2022-09-07] MEDS: hydrOXYzine 25 MG TAB PO PRN (20:27)
[2022-09-08] MEDS: Acetaminophen 325 MG TAB PO PRN ×3 (00:18→20:23)
[2022-09-08] MEDS: Cefepime 2 GM in Sodium Chloride 0.9% 100 ML IVPB SCH ×2 (05:08→18:04)
[2022-09-08] MEDS: Levothyroxine Sodium 112 MCG TAB PO SCH (05:08)
[2022-09-08] MEDS: Levothyroxine Sodium 25 MCG TAB PO SCH (05:09)
[2022-09-08] MEDS: Phenazopyridine HCl 100 MG TAB PO SCH ×3 (09:05→18:04)
[2022-09-08] MEDS: Nystatin Powder 15 GM BOT TOP SCH ×2 (09:05→20:23)
[2022-09-08] MEDS: DULoxetine 60 MG CAP PO SCH (09:06)
[2022-09-08] MEDS: Gabapentin 100 MG CAP PO SCH ×3 (09:06→20:22)
[2022-09-08] MEDS: Nystatin 500,000 UNITS/5 ML UDCUP SSW SCH ×4 (09:06→20:23)
[2022-09-08] MEDS: hydrOXYzine 25 MG TAB PO PRN (20:22)
[2022-09-08] MEDS: Cefdinir 300 MG CAP PO SCH (20:22)
[2022-09-09] MEDS: Levothyroxine Sodium 112 MCG TAB PO SCH (05:53)
[2022-09-09] MEDS: Promethazine HCl 12.5 MG in Sodium Chloride 0.9% 50 ML IVPB PRN ×2 (05:54→16:33)
[2022-09-09] MEDS: Levothyroxine Sodium 25 MCG TAB PO SCH (05:54)
[2022-09-09] MEDS: Cefdinir 300 MG CAP PO SCH (08:11)
[2022-09-09] MEDS: Nystatin 500,000 UNITS/5 ML UDCUP SSW SCH ×3 (08:12→17:34)
[2022-09-09] MEDS: Gabapentin 100 MG CAP PO SCH ×2 (08:12→15:29)
[2022-09-09] MEDS: DULoxetine 60 MG CAP PO SCH (08:12)
[2022-09-09] MEDS: Nystatin Powder 15 GM BOT TOP SCH (08:12)
[2022-09-09] MEDS: Phenazopyridine HCl 100 MG TAB PO SCH ×3 (08:12→17:33)
[2022-09-09] MEDS: Acetaminophen 325 MG TAB PO PRN ×2 (08:15→16:33)
[2022-09-09 16:05] VITALS: TEMP 98.4
[2022-09-09 18:20] VITALS: BP 148/84
== END 2022-09-09 19:49 | DRG 602 ==
LOC: ERS 04:47 → ERHOLD 08:47 → T4-A 14:32
PROVIDERS: ADMIT Family Medicine; ATTEND Family Medicine
DX: L03.311 Cellulitis of abdominal wall (principal); G93.41 Metabolic encephalopathy; N39.0 Urinary tract infection, site not specified; Z68.41 Body mass index [BMI] 40.0-44.9, adult; Z20.822 Contact with and (suspected) exposure to COVID-19; B35.6 Tinea cruris; E86.0 Dehydration; E03.9 Hypothyroidism, unspecified; F31.9 Bipolar disorder, unspecified; E66.01 Morbid (severe) obesity due to excess calories; K21.9 Gastro-esophageal reflux disease without esophagitis; F43.10 Post-traumatic stress disorder, unspecified; G89.29 Other chronic pain; Z60.2 Problems related to living alone; E11.65 Type 2 diabetes mellitus with hyperglycemia; E83.52 Hypercalcemia; F17.210 Nicotine dependence, cigarettes, uncomplicated; J44.9 Chronic obstructive pulmonary disease, unspecified; Z79.899 Other long term (current) drug therapy; Z88.0 Allergy status to penicillin; Z88.8 Allergy status to other drugs, medicaments and biological substances; Z90.49 Acquired absence of other specified parts of digestive tract; Z82.49 Family history of ischemic heart disease and other diseases of the circulatory system; Z83.6 Family history of other diseases of the respiratory system; Z74.01 Bed confinement status
CPT/HCPCS: 36415; 36416; 71045; 74177; 80048; 80053; 80202; 81003; 81015; 82140; 83605; 83690; 83880; 84484; 85025; 87040; 87086; 87324; 87449; 96365; 96366; 96367; 96375; 96376; 97139; J0692; J2270; J2550; J3370; J3490; J7050; Q0169; Q9967; U0003; U0005

== ENCOUNTER 2022-10-24 03:54 | Inpatient (IN) | payer OTHER ==
[2022-10-24] MEDS ORDERED: Cefepime 2 GM VIAL ONE (04:19)
[2022-10-24] MEDS ORDERED: Morphine 4 MG/ML VIAL ONE (04:19)
[2022-10-24 04:45] LABS: #Basophils 0.1 thou/uL (0.0-0.2); #Eosinphils 0.3 thou/uL (0.0-0.7); #Lymphocytes 3.1 thou/uL (1.20-3.40); #Monocytes 0.7 thou/uL (0.11-0.59); #Neutrophils 3.9 thou/uL (1.40-6.50); %Basophils 1.1 % (0.0-1.0); %Eosinophils 3.7 % (0.0-10.0); %Lymphocytes 38.2 % (21.0-51.0); %Monocytes 8.1 % (0.0-10.0); Hemoglobin 11.2 g/dL (12.0-16.0); Mean Corpuscular HGB CONC 33.1 g/dL (32.0-36.0); Mean Corpuscular Hemoglobin 27.4 pg (27.0-31.0); Mean Corpuscular Volume 82.8 fl (78.0-98.0); Mean Platelet Volume 8.5 fL (7.4-10.4); Platelet Count 196 10x3/uL (130-400); RBC Distribution Width 17.2 % (11.5-14.5); Red Blood Cell (RBC) Count 4.11 mill/uL (4.20-5.40)
[2022-10-24 05:05] LABS: ALT (SGPT) 9 U/L (8-55); AST (SGOT) 14 U/L (5-34); Albumin 3.4 g/dL (3.4-4.8); Alkaline Phosphatase 108 U/L (40-110); Anion Gap 11 mmol/L (10-20); BUN (Urea Nitrogen) 7 mg/dL (9.8-20.1); Bilirubin, Total 0.5 mg/dL (0.2-1.2); Calc. Creatinine Clearance 0 mL/min (70-130); Calcium 9.7 mg/dL (7.8-10.44); Carbon Dioxide 23 mmol/L (23-31); Chloride 105 mmol/L (98-107); Estimated GFR 91; Globulin 3.3 g/dL (2.4-3.5); Glucose 111 mg/dL (80-115); Protein, Total 6.7 g/dL (5.8-8.1); Sodium 136 mmol/L (136-145)
[2022-10-24] MEDS ORDERED: Fluconazole 100 MG TAB PO SCH (05:15)
[2022-10-24] MEDS ORDERED: Vancomycin 1 GM/200 ML (FROZEN) BAG ONE (06:10)
[2022-10-24] MEDS ORDERED: Albuterol 200 PUFF (6.7GM INHALER) INH PRN (07:23)
[2022-10-24] MEDS ORDERED: Bisacodyl 5 MG TAB PO PRN (07:24)
[2022-10-24] MEDS ORDERED: Acetaminophen 500 MG TAB PO PRN (07:24)
[2022-10-24] MEDS ORDERED: Senokot S 8.6-50 MG TAB PO PRN (07:24)
[2022-10-24] MEDS ORDERED: Moisturizing Cream (Eucerin) 113 GM JAR TOP PRN (07:24)
[2022-10-24] MEDS ORDERED: HYDROcodone/Acetaminophen 5/325 mg Tablet PO PRN (07:24)
[2022-10-24] MEDS ORDERED: Ondansetron ODT 4 MG TAB PO PRN (07:24)
[2022-10-24] MEDS ORDERED: Artificial Tear Sol 15 ML BOT EA EYE PRN (07:24)
[2022-10-24] MEDS ORDERED: Communication Order-Pharmacy FS ONE (07:25)
[2022-10-24] MEDS ORDERED: Dextrose 50% Abboject 50 ML SYRINGE SLOW IVP PRN (07:28)
[2022-10-24] MEDS ORDERED: HumaLOG 300 UNITS/3 ML VIAL SC PRN ×2 (07:28)
[2022-10-24] MEDS ORDERED: Dextrose 5% in Water 1,000 ML IV PRN (07:28)
[2022-10-24] MEDS ORDERED: Potassium Chloride 20 MEQ TAB PO SCH (07:30)
[2022-10-24] MEDS ORDERED: Albuterol HFA (OR) 200 PUFF INH INH PRN (08:15)
[2022-10-24] MEDS ORDERED: Vancomycin 1 GM in Premix Bag 1 BAG IVPB SCH (09:00)
[2022-10-24] MEDS: Loratadine 10 MG TAB PO SCH (09:16)
[2022-10-24] MEDS: DULoxetine 60 MG CAP PO SCH (09:17)
[2022-10-24] MEDS: Folic Acid 1 MG TAB PO SCH (09:17)
[2022-10-24] MEDS: Gabapentin 100 MG CAP PO SCH ×3 (09:17→21:26)
[2022-10-24] MEDS: metFORMIN XR 500 MG TAB PO SCH ×3 (09:18→17:41)
[2022-10-24 10:08] VITALS: BMI 37.7
[2022-10-24] MEDS: Morphine 2 MG/ML VIAL SLOW IVP PRN (10:14)
[2022-10-24] MEDS: Nystatin Powder 15 GM BOT TOP SCH ×2 (11:04→21:29)
[2022-10-24] MEDS ORDERED: Iopamidol-370 76% 500 ML MDV (1 ML CHARGE) ONE (12:10)
[2022-10-24] MEDS ORDERED: VANCOMYCIN 1.25 GM/250 ML BAG 1.25 GM in Premix Bag 1 BAG IVPB SCH (13:00)
[2022-10-24] MEDS: Morphine 4 MG/ML VIAL SLOW IVP PRN ×2 (15:49→21:27)
[2022-10-24] MEDS: Cefepime 2 GM in Sodium Chloride 0.9% 100 ML IVPB SCH (16:27)
[2022-10-24] MEDS: VANCOMYCIN 1.25 GM/250 ML BAG 1.25 GM in Premix Bag 1 BAG IVPB SCH (18:50)
[2022-10-24] MEDS: hydrOXYzine 25 MG TAB PO PRN (21:26)
[2022-10-25] MEDS: Promethazine 25 MG TAB PO PRN ×3 (00:32→23:01)
[2022-10-25] MEDS: Cefepime 2 GM in Sodium Chloride 0.9% 100 ML IVPB SCH ×3 (04:45→16:48)
[2022-10-25] MEDS: Levothyroxine Sodium 25 MCG TAB PO SCH (06:05)
[2022-10-25] MEDS: Levothyroxine Sodium 112 MCG TAB PO SCH (06:06)
[2022-10-25] MEDS: VANCOMYCIN 1.25 GM/250 ML BAG 1.25 GM in Premix Bag 1 BAG IVPB SCH ×2 (06:08→19:14)
[2022-10-25 07:52] LABS: Anion Gap 10 mmol/L (10-20); BUN (Urea Nitrogen) 9 mg/dL (9.8-20.1); Calc. Creatinine Clearance 152 mL/min (70-130); Calcium 9.5 mg/dL (7.8-10.44); Carbon Dioxide 24 mmol/L (23-31); Chloride 105 mmol/L (98-107); Estimated GFR 97; Glucose 111 mg/dL (80-115); Potassium 3.8 mmol/L (3.5-5.1); Sodium 135 mmol/L (136-145)
[2022-10-25] MEDS: metFORMIN XR 500 MG TAB PO SCH ×2 (08:34→17:19)
[2022-10-25] MEDS: Folic Acid 1 MG TAB PO SCH (08:35)
[2022-10-25] MEDS: DULoxetine 60 MG CAP PO SCH (08:35)
[2022-10-25] MEDS: Loratadine 10 MG TAB PO SCH (08:36)
[2022-10-25] MEDS: Gabapentin 100 MG CAP PO SCH ×3 (08:36→20:10)
[2022-10-25] MEDS: Nystatin Powder 15 GM BOT TOP SCH ×2 (08:37→20:14)
[2022-10-25] MEDS: Morphine 2 MG/ML VIAL SLOW IVP PRN ×2 (08:53→15:59)
[2022-10-25 17:27] LABS: Vancomycin, Trough 16.4 ug/mL
[2022-10-25] MEDS: hydrOXYzine 25 MG TAB PO PRN (21:08)
[2022-10-26] MEDS: Levothyroxine Sodium 25 MCG TAB PO SCH (05:20)
[2022-10-26] MEDS: Levothyroxine Sodium 112 MCG TAB PO SCH (05:20)
[2022-10-26] MEDS: Cefepime 2 GM in Sodium Chloride 0.9% 100 ML IVPB SCH ×2 (05:20→16:03)
[2022-10-26] MEDS: Morphine 4 MG/ML VIAL SLOW IVP PRN ×4 (05:20→18:53)
[2022-10-26] MEDS: VANCOMYCIN 1.25 GM/250 ML BAG 1.25 GM in Premix Bag 1 BAG IVPB SCH (06:11)
[2022-10-26 06:15] LABS: Anion Gap 11 mmol/L (10-20); BUN (Urea Nitrogen) 10 mg/dL (9.8-20.1); Calc. Creatinine Clearance 146 mL/min (70-130); Calcium 9.9 mg/dL (7.8-10.44); Carbon Dioxide 25 mmol/L (23-31); Chloride 105 mmol/L (98-107); Estimated GFR 92; Glucose 130 mg/dL (80-115); Potassium 4.3 mmol/L (3.5-5.1); Sodium 137 mmol/L (136-145)
[2022-10-26] MEDS: Folic Acid 1 MG TAB PO SCH (08:24)
[2022-10-26] MEDS: Gabapentin 100 MG CAP PO SCH ×3 (08:24→19:59)
[2022-10-26] MEDS: DULoxetine 60 MG CAP PO SCH (08:26)
[2022-10-26] MEDS: Loratadine 10 MG TAB PO SCH (08:26)
[2022-10-26] MEDS: metFORMIN XR 500 MG TAB PO SCH ×2 (08:27→18:02)
[2022-10-26] MEDS: Nystatin Powder 15 GM BOT TOP SCH ×2 (09:10→20:02)
[2022-10-26] MEDS: Promethazine 25 MG TAB PO PRN ×2 (11:31→17:55)
[2022-10-26] MEDS: HYDROcodone/Acetaminophen 10/325 mg Tablet PO PRN (17:56)
[2022-10-26] MEDS: Cephalexin 250 MG CAP PO SCH (18:54)
[2022-10-26] MEDS: Doxycycline 100 MG CAP PO SCH (19:58)
[2022-10-27] MEDS: Cephalexin 250 MG CAP PO SCH ×5 (00:25→23:58)
[2022-10-27] MEDS: Morphine 4 MG/ML VIAL SLOW IVP PRN ×3 (00:25→17:48)
[2022-10-27] MEDS: hydrOXYzine 25 MG TAB PO PRN ×2 (00:26→22:30)
[2022-10-27] MEDS: Ergocalciferol 1.25 MG(50,000 UNITS) CAP PO SCH ×2 (00:51→00:52)
[2022-10-27] MEDS: HYDROcodone/Acetaminophen 10/325 mg Tablet PO PRN (03:46)
[2022-10-27] MEDS: Promethazine 25 MG TAB PO PRN ×3 (03:46→22:30)
[2022-10-27] MEDS: Levothyroxine Sodium 25 MCG TAB PO SCH (05:36)
[2022-10-27] MEDS: Levothyroxine Sodium 112 MCG TAB PO SCH (05:36)
[2022-10-27] MEDS: metFORMIN XR 500 MG TAB PO SCH ×2 (07:17→16:02)
[2022-10-27 07:18] LABS: Anion Gap 10 mmol/L (10-20); BUN (Urea Nitrogen) 9 mg/dL (9.8-20.1); Calc. Creatinine Clearance 157 mL/min (70-130); Calcium 9.9 mg/dL (7.8-10.44); Carbon Dioxide 27 mmol/L (23-31); Chloride 103 mmol/L (98-107); Estimated GFR 99; Glucose 121 mg/dL (80-115); Potassium 4.1 mmol/L (3.5-5.1); Sodium 136 mmol/L (136-145)
[2022-10-27] MEDS: Gabapentin 100 MG CAP PO SCH ×3 (09:05→22:30)
[2022-10-27] MEDS: DULoxetine 60 MG CAP PO SCH (09:05)
[2022-10-27] MEDS: Folic Acid 1 MG TAB PO SCH (09:05)
[2022-10-27] MEDS: Loratadine 10 MG TAB PO SCH (09:06)
[2022-10-27] MEDS: Nystatin Powder 15 GM BOT TOP SCH ×2 (09:06→22:35)
[2022-10-27] MEDS: Doxycycline 100 MG CAP PO SCH ×2 (09:10→22:30)
[2022-10-27] MEDS ORDERED: Lactated Ringer's 500 ML IV SCH (09:30)
[2022-10-27] MEDS: Acetaminophen 325 MG TAB PO SCH ×3 (11:45→22:36)
[2022-10-27] MEDS: traMADol HCl 50 MG TAB PO PRN (15:53)
[2022-10-27] MEDS: Lactated Ringer's 1,000 ML IV SCH (17:47)
[2022-10-28] MEDS: Levothyroxine Sodium 25 MCG TAB PO SCH (05:10)
[2022-10-28] MEDS: Cephalexin 250 MG CAP PO SCH ×3 (05:10→18:42)
[2022-10-28] MEDS: Acetaminophen 325 MG TAB PO SCH ×3 (05:10→14:47)
[2022-10-28] MEDS: Levothyroxine Sodium 112 MCG TAB PO SCH (05:10)
[2022-10-28] MEDS: Lactated Ringer's 1,000 ML IV SCH ×2 (05:12→14:45)
[2022-10-28] MEDS: Gabapentin 100 MG CAP PO SCH ×3 (09:12→20:29)
[2022-10-28] MEDS: Folic Acid 1 MG TAB PO SCH (09:12)
[2022-10-28] MEDS: DULoxetine 60 MG CAP PO SCH (09:14)
[2022-10-28] MEDS: Doxycycline 100 MG CAP PO SCH ×2 (09:14→20:29)
[2022-10-28] MEDS: Loratadine 10 MG TAB PO SCH (09:15)
[2022-10-28] MEDS: Nystatin Powder 15 GM BOT TOP SCH ×2 (09:18→20:30)
[2022-10-28] MEDS: metFORMIN XR 500 MG TAB PO SCH ×2 (09:20→16:13)
[2022-10-28] MEDS: traMADol HCl 50 MG TAB PO PRN ×3 (09:24→18:40)
[2022-10-28] MEDS: Morphine 4 MG/ML VIAL SLOW IVP PRN (10:54)
[2022-10-28] MEDS: Promethazine 25 MG TAB PO PRN (12:18)
[2022-10-28] MEDS: Acetaminophen 500 MG TAB PO SCH (18:41)
[2022-10-29] MEDS: Acetaminophen 500 MG TAB PO SCH ×4 (00:36→17:07)
[2022-10-29] MEDS: traMADol HCl 50 MG TAB PO PRN ×2 (00:36→08:26)
[2022-10-29] MEDS: Cephalexin 250 MG CAP PO SCH ×4 (00:37→17:07)
[2022-10-29] MEDS: Promethazine 25 MG TAB PO PRN ×2 (00:44→07:55)
[2022-10-29] MEDS: Levothyroxine Sodium 25 MCG TAB PO SCH (06:48)
[2022-10-29] MEDS: Levothyroxine Sodium 112 MCG TAB PO SCH (06:48)
[2022-10-29] MEDS: Folic Acid 1 MG TAB PO SCH (07:56)
[2022-10-29] MEDS: Gabapentin 100 MG CAP PO SCH ×3 (07:56→21:09)
[2022-10-29] MEDS: Doxycycline 100 MG CAP PO SCH ×2 (07:56→21:09)
[2022-10-29] MEDS: Loratadine 10 MG TAB PO SCH (07:56)
[2022-10-29] MEDS: metFORMIN XR 500 MG TAB PO SCH ×2 (07:56→16:15)
[2022-10-29] MEDS: DULoxetine 60 MG CAP PO SCH (07:56)
[2022-10-29] MEDS: Nystatin Powder 15 GM BOT TOP SCH ×2 (07:58→21:09)
[2022-10-29] MEDS: Pantoprazole 40 MG VIAL IVP SCH (09:31)
[2022-10-30] MEDS: Cephalexin 250 MG CAP PO SCH ×5 (00:32→23:39)
[2022-10-30] MEDS: traMADol HCl 50 MG TAB PO PRN ×3 (00:32→23:40)
[2022-10-30] MEDS: Acetaminophen 500 MG TAB PO SCH ×5 (00:32→23:39)
[2022-10-30 06:38] LABS: #Basophils 0.1 thou/uL (0.0-0.2); #Eosinphils 0.3 thou/uL (0.0-0.7); #Lymphocytes 2.3 thou/uL (1.20-3.40); #Monocytes 0.5 thou/uL (0.11-0.59); #Neutrophils 2.3 thou/uL (1.40-6.50); %Eosinophils 4.9 % (0.0-10.0); %Lymphocytes 43.4 % (21.0-51.0); %Monocytes 8.6 % (0.0-10.0); %Neutrophils 42.2 % (42.0-75.0); Hemoglobin 9.8 g/dL (12.0-16.0); Mean Corpuscular HGB CONC 32.9 g/dL (32.0-36.0); Mean Corpuscular Hemoglobin 27.3 pg (27.0-31.0); Mean Corpuscular Volume 82.9 fl (78.0-98.0); Mean Platelet Volume 8.7 fL (7.4-10.4); Platelet Count 168 10x3/uL (130-400); White Blood Cell (WBC) Count 5.3 10x3/uL (4.8-10.8)
[2022-10-30] MEDS: Levothyroxine Sodium 25 MCG TAB PO SCH (06:41)
[2022-10-30] MEDS: Levothyroxine Sodium 112 MCG TAB PO SCH (06:41)
[2022-10-30 06:55] LABS: Sodium 136 mmol/L (136-145)
[2022-10-30 06:56] LABS: Anion Gap 9 mmol/L (10-20); BUN (Urea Nitrogen) 14 mg/dL (9.8-20.1); Calc. Creatinine Clearance 154 mL/min (70-130); Calcium 9.9 mg/dL (7.8-10.44); Carbon Dioxide 27 mmol/L (23-31); Chloride 104 mmol/L (98-107); Estimated GFR 98; Glucose 132 mg/dL (80-115)
[2022-10-30] MEDS: DULoxetine 60 MG CAP PO SCH (08:50)
[2022-10-30] MEDS: Folic Acid 1 MG TAB PO SCH (08:50)
[2022-10-30] MEDS: Gabapentin 100 MG CAP PO SCH ×3 (08:50→21:12)
[2022-10-30] MEDS: Pantoprazole 40 MG VIAL IVP SCH (08:51)
[2022-10-30] MEDS: metFORMIN XR 500 MG TAB PO SCH ×2 (08:51→16:08)
[2022-10-30] MEDS: Nystatin Powder 15 GM BOT TOP SCH ×2 (08:51→21:12)
[2022-10-30] MEDS: Doxycycline 100 MG CAP PO SCH ×2 (08:51→21:13)
[2022-10-30] MEDS: Loratadine 10 MG TAB PO SCH (08:51)
[2022-10-30] MEDS: Morphine 4 MG/ML VIAL SLOW IVP PRN ×2 (08:59→21:11)
[2022-10-30] MEDS: Promethazine 25 MG TAB PO PRN (21:12)
[2022-10-31] MEDS: Acetaminophen 500 MG TAB PO SCH ×5 (05:29→20:20)
[2022-10-31] MEDS: Cephalexin 250 MG CAP PO SCH ×4 (05:30→23:40)
[2022-10-31] MEDS: Levothyroxine Sodium 112 MCG TAB PO SCH (05:30)
[2022-10-31] MEDS: Levothyroxine Sodium 25 MCG TAB PO SCH (05:30)
[2022-10-31 06:58] LABS: #Eosinphils 0.2 thou/uL (0.0-0.7); #Lymphocytes 1.9 thou/uL (1.20-3.40); #Monocytes 0.4 thou/uL (0.11-0.59); #Neutrophils 2.3 thou/uL (1.40-6.50); %Basophils 0.8 % (0.0-1.0); %Eosinophils 3.8 % (0.0-10.0); %Lymphocytes 39.6 % (21.0-51.0); %Monocytes 8.7 % (0.0-10.0); %Neutrophils 47.1 % (42.0-75.0); Mean Corpuscular HGB CONC 31.2 g/dL (32.0-36.0); Mean Corpuscular Hemoglobin 26.5 pg (27.0-31.0); Mean Corpuscular Volume 84.9 fl (78.0-98.0); Mean Platelet Volume 7.9 fL (7.4-10.4); Platelet Count 185 10x3/uL (130-400); RBC Distribution Width 16.7 % (11.5-14.5); Red Blood Cell (RBC) Count 3.76 mill/uL (4.20-5.40); White Blood Cell (WBC) Count 4.9 10x3/uL (4.8-10.8)
[2022-10-31 07:15] LABS: Anion Gap 10 mmol/L (10-20); BUN (Urea Nitrogen) 16 mg/dL (9.8-20.1); Calc. Creatinine Clearance 154 mL/min (70-130); Calcium 9.9 mg/dL (7.8-10.44); Carbon Dioxide 26 mmol/L (23-31); Chloride 103 mmol/L (98-107); Estimated GFR 98; Glucose 155 mg/dL (80-115); Potassium 4.1 mmol/L (3.5-5.1); Sodium 135 mmol/L (136-145)
[2022-10-31] MEDS ORDERED: Fluconazole 100 MG TAB PO SCH (09:00)
[2022-10-31] MEDS: DULoxetine 60 MG CAP PO SCH (09:52)
[2022-10-31] MEDS: Loratadine 10 MG TAB PO SCH (09:53)
[2022-10-31] MEDS: Doxycycline 100 MG CAP PO SCH ×2 (09:53→20:21)
[2022-10-31] MEDS: Folic Acid 1 MG TAB PO SCH (09:53)
[2022-10-31] MEDS: metFORMIN XR 500 MG TAB PO SCH ×2 (09:53→18:04)
[2022-10-31] MEDS: Gabapentin 100 MG CAP PO SCH ×3 (09:53→20:21)
[2022-10-31] MEDS: Promethazine 25 MG TAB PO PRN (09:56)
[2022-10-31] MEDS: Nystatin Powder 15 GM BOT TOP SCH ×2 (10:02→20:22)
[2022-10-31] MEDS: traMADol HCl 50 MG TAB PO PRN (18:34)
[2022-10-31] MEDS: hydrOXYzine 25 MG TAB PO PRN (20:21)
[2022-11-01] MEDS: Acetaminophen 500 MG TAB PO SCH ×5 (02:04→23:07)
[2022-11-01] MEDS: traMADol HCl 50 MG TAB PO PRN ×3 (02:06→20:56)
[2022-11-01] MEDS: Promethazine 25 MG TAB PO PRN (02:10)
[2022-11-01] MEDS: Morphine 4 MG/ML VIAL SLOW IVP PRN ×2 (03:34→23:08)
[2022-11-01] MEDS: Levothyroxine Sodium 112 MCG TAB PO SCH (05:52)
[2022-11-01] MEDS: Levothyroxine Sodium 25 MCG TAB PO SCH (05:53)
[2022-11-01] MEDS: Cephalexin 250 MG CAP PO SCH ×4 (05:53→23:07)
[2022-11-01 07:22] LABS: #Basophils 0.1 thou/uL (0.0-0.2); #Eosinphils 0.2 thou/uL (0.0-0.7); #Lymphocytes 2.3 thou/uL (1.20-3.40); #Monocytes 0.5 thou/uL (0.11-0.59); #Neutrophils 2.7 thou/uL (1.40-6.50); %Basophils 1.1 % (0.0-1.0); %Eosinophils 3.9 % (0.0-10.0); %Lymphocytes 40.1 % (21.0-51.0); %Monocytes 8.7 % (0.0-10.0); %Neutrophils 46.2 % (42.0-75.0); Mean Corpuscular HGB CONC 33.3 g/dL (32.0-36.0); Mean Corpuscular Hemoglobin 28.1 pg (27.0-31.0); Mean Corpuscular Volume 84.2 fl (78.0-98.0); Mean Platelet Volume 8.7 fL (7.4-10.4); Platelet Count 170 10x3/uL (130-400); RBC Distribution Width 16.7 % (11.5-14.5); Red Blood Cell (RBC) Count 3.55 mill/uL (4.20-5.40); White Blood Cell (WBC) Count 5.8 10x3/uL (4.8-10.8)
[2022-11-01 07:36] LABS: Anion Gap 10 mmol/L (10-20); BUN (Urea Nitrogen) 16 mg/dL (9.8-20.1); Calc. Creatinine Clearance 161 mL/min (70-130); Calcium 9.7 mg/dL (7.8-10.44); Carbon Dioxide 25 mmol/L (23-31); Chloride 104 mmol/L (98-107); Estimated GFR 99; Glucose 152 mg/dL (80-115); Potassium 4.1 mmol/L (3.5-5.1); Sodium 135 mmol/L (136-145)
[2022-11-01] MEDS: Pantoprazole 40 MG VIAL IVP SCH (08:47)
[2022-11-01] MEDS: Loratadine 10 MG TAB PO SCH (08:47)
[2022-11-01] MEDS: metFORMIN XR 500 MG TAB PO SCH ×2 (08:48→17:02)
[2022-11-01] MEDS: Folic Acid 1 MG TAB PO SCH (08:48)
[2022-11-01] MEDS: Doxycycline 100 MG CAP PO SCH ×2 (08:48→20:53)
[2022-11-01] MEDS: Gabapentin 100 MG CAP PO SCH ×3 (08:48→20:53)
[2022-11-01] MEDS: DULoxetine 60 MG CAP PO SCH (08:48)
[2022-11-01] MEDS: Nystatin Powder 15 GM BOT TOP SCH ×2 (08:53→20:54)
[2022-11-01] MEDS ORDERED: hydrOXYzine 25 MG TAB PO PRN (09:50)
[2022-11-02] MEDS: Promethazine 25 MG TAB PO PRN (00:19)
[2022-11-02] MEDS: Cephalexin 250 MG CAP PO SCH ×2 (05:08→11:29)
[2022-11-02] MEDS: Levothyroxine Sodium 25 MCG TAB PO SCH (05:08)
[2022-11-02] MEDS: Levothyroxine Sodium 112 MCG TAB PO SCH (05:08)
[2022-11-02] MEDS: Acetaminophen 500 MG TAB PO SCH ×2 (05:08→11:24)
[2022-11-02] MEDS: traMADol HCl 50 MG TAB PO PRN ×2 (05:09→11:24)
[2022-11-02] MEDS: Gabapentin 100 MG CAP PO SCH ×2 (08:26→14:56)
[2022-11-02] MEDS: Pantoprazole 40 MG VIAL IVP SCH (08:26)
[2022-11-02] MEDS: metFORMIN XR 500 MG TAB PO SCH ×2 (08:26→16:53)
[2022-11-02] MEDS: Folic Acid 1 MG TAB PO SCH (08:27)
[2022-11-02] MEDS: Loratadine 10 MG TAB PO SCH (08:27)
[2022-11-02] MEDS: DULoxetine 60 MG CAP PO SCH (08:27)
[2022-11-02] MEDS: Doxycycline 100 MG CAP PO SCH (08:27)
[2022-11-02] MEDS: Nystatin Powder 15 GM BOT TOP SCH (08:32)
[2022-11-02 16:51] VITALS: BP 138/84; TEMP 99
== END 2022-11-02 17:30 | disposition home or self-care (01) | DRG 603 ==
LOC: SUATTDRO 03:54 → ERS 03:54 → T4-B 05:48 → OBSVTOIN 10-25 08:43
PROVIDERS: ADMIT Family Medicine; ATTEND Internal Medicine
DX: L03.314 Cellulitis of groin (principal); E87.1 Hypo-osmolality and hyponatremia; M79.3 Panniculitis, unspecified; Z20.822 Contact with and (suspected) exposure to COVID-19; E03.9 Hypothyroidism, unspecified; J44.9 Chronic obstructive pulmonary disease, unspecified; K21.9 Gastro-esophageal reflux disease without esophagitis; F32.A Depression, unspecified; F43.10 Post-traumatic stress disorder, unspecified; E66.01 Morbid (severe) obesity due to excess calories; F41.9 Anxiety disorder, unspecified; E78.00 Pure hypercholesterolemia, unspecified; F17.210 Nicotine dependence, cigarettes, uncomplicated; E87.6 Hypokalemia; Z88.0 Allergy status to penicillin; Z88.6 Allergy status to analgesic agent; Z88.8 Allergy status to other drugs, medicaments and biological substances; Z90.49 Acquired absence of other specified parts of digestive tract; Z68.37 Body mass index [BMI] 37.0-37.9, adult
CPT/HCPCS: 36415; 36416; 74177; 80048; 80053; 80202; 83605; 85025; 87040; 87149; 96365; 96367; 96375; 96376; 97139; C9113; G0378; J0692; J2270; J2272; J3370; J3370-JW; J3490; J7120; Q0169; Q9967

== ENCOUNTER 2022-11-04 21:14 | Emergency (ER) | payer OTHER ==
[2022-11-04 23:15] LABS: #Basophils 0.1 thou/uL (0.0-0.2); #Eosinphils 0.3 thou/uL (0.0-0.7); #Lymphocytes 3.1 thou/uL (1.20-3.40); #Monocytes 0.6 thou/uL (0.11-0.59); #Neutrophils 4.2 thou/uL (1.40-6.50); %Basophils 1.1 % (0.0-1.0); %Eosinophils 3.2 % (0.0-10.0); %Lymphocytes 37.1 % (21.0-51.0); %Neutrophils 51.5 % (42.0-75.0); Hemoglobin 10.4 g/dL (12.0-16.0); Mean Corpuscular HGB CONC 32.9 g/dL (32.0-36.0); Mean Corpuscular Hemoglobin 27.1 pg (27.0-31.0); Mean Corpuscular Volume 82.5 fl (78.0-98.0); Mean Platelet Volume 7.6 fL (7.4-10.4); Platelet Count 227 10x3/uL (130-400); RBC Distribution Width 16.7 % (11.5-14.5); Red Blood Cell (RBC) Count 3.85 mill/uL (4.20-5.40); White Blood Cell (WBC) Count 8.2 10x3/uL (4.8-10.8)
[2022-11-04] MEDS ORDERED: Acetaminophen 500 MG TAB ONE (23:22)
[2022-11-04] MEDS ORDERED: Promethazine 25 MG TAB ONE (23:22)
[2022-11-04 23:34] LABS: ALT (SGPT) 13 U/L (8-55); AST (SGOT) 20 U/L (5-34); Albumin 3.8 g/dL (3.4-4.8); Alkaline Phosphatase 98 U/L (40-110); Anion Gap 11 mmol/L (10-20); BUN (Urea Nitrogen) 12 mg/dL (9.8-20.1); Bilirubin, Total 0.8 mg/dL (0.2-1.2); Calc. Creatinine Clearance 0 mL/min (70-130); Calcium 10.3 mg/dL (7.8-10.44); Carbon Dioxide 25 mmol/L (23-31); Chloride 106 mmol/L (98-107); Estimated GFR 88; Globulin 3.7 g/dL (2.4-3.5); Glucose 142 mg/dL (80-115); Potassium 3.9 mmol/L (3.5-5.1); Protein, Total 7.5 g/dL (5.8-8.1); Sodium 138 mmol/L (136-145)
== END 2022-11-05 01:14 | disposition home or self-care (01) ==
LOC: ERS 21:14
DX: L03.311 Cellulitis of abdominal wall (principal); K21.9 Gastro-esophageal reflux disease without esophagitis; E78.00 Pure hypercholesterolemia, unspecified; F17.210 Nicotine dependence, cigarettes, uncomplicated
CPT/HCPCS: 36415; 80053; 85025; 87040; 99283; Q0169

== ENCOUNTER 2022-11-06 20:55 | Emergency (ER) | payer OTHER ==
[2022-11-06] MEDS ORDERED: Acetaminophen 500 MG TAB ONE (21:29)
[2022-11-06] MEDS ORDERED: Nystatin Powder 15 GM BOT TOP SCH (21:30)
== END 2022-11-06 23:22 | disposition home or self-care (01) ==
LOC: ERS 20:55
DX: L03.311 Cellulitis of abdominal wall (principal); E78.00 Pure hypercholesterolemia, unspecified; K21.9 Gastro-esophageal reflux disease without esophagitis; F17.210 Nicotine dependence, cigarettes, uncomplicated; Z79.899 Other long term (current) drug therapy
CPT/HCPCS: 99283

== ENCOUNTER 2022-11-08 06:22 | Emergency (ER) | payer OTHER | END 2022-11-08 06:54 | disposition home or self-care (01) | LOC: ERS 06:22 | DX: L29.2 Pruritus vulvae (principal); K21.9 Gastro-esophageal reflux disease without esophagitis; E78.00 Pure hypercholesterolemia, unspecified; F17.210 Nicotine dependence, cigarettes, uncomplicated | CPT/HCPCS: 99283 ==

== ENCOUNTER 2022-11-28 20:43 | Emergency (ER) | payer OTHER ==
[~2022-11-28 20:43] MED LIST changes: -Iopamidol-370 76% 500 ML 1 ML ONE; +Iopamidol-370 76% 500 ML MDV (1 ML CHARGE) ONE
[2022-11-28] MEDS ORDERED: fentaNYL 50 mcg/mL 1 mL Vial ONE (21:02)
[2022-11-28 21:28] LABS: #Basophils 0.1 thou/uL (0.0-0.2); #Eosinphils 0.4 thou/uL (0.0-0.7); #Lymphocytes 2.9 thou/uL (1.20-3.40); #Monocytes 0.5 thou/uL (0.11-0.59); #Neutrophils 3.9 thou/uL (1.40-6.50); %Eosinophils 4.7 % (0.0-10.0); %Lymphocytes 37.9 % (21.0-51.0); %Monocytes 5.9 % (0.0-10.0); %Neutrophils 50.5 % (42.0-75.0); Hemoglobin 10.7 g/dL (12.0-16.0); Mean Corpuscular Hemoglobin 26.5 pg (27.0-31.0); Mean Corpuscular Volume 82.8 fl (78.0-98.0); Mean Platelet Volume 8.4 fL (7.4-10.4); Platelet Count 204 10x3/uL (130-400); RBC Distribution Width 15.9 % (11.5-14.5); Red Blood Cell (RBC) Count 4.06 mill/uL (4.20-5.40); White Blood Cell (WBC) Count 7.7 10x3/uL (4.8-10.8)
[2022-11-28 21:46] LABS: ALT (SGPT) Less than 7 U/L (8-55); AST (SGOT) 22 U/L (5-34); Albumin 3.7 g/dL (3.4-4.8); Alkaline Phosphatase 112 U/L (40-110); Anion Gap 16 mmol/L (10-20); BUN (Urea Nitrogen) 7 mg/dL (9.8-20.1); Bilirubin, Total 0.6 mg/dL (0.2-1.2); Calc. Creatinine Clearance 0 mL/min (70-130); Calcium 9.3 mg/dL (7.8-10.44); Carbon Dioxide 20 mmol/L (23-31); Chloride 106 mmol/L (98-107); Estimated GFR 89; Globulin 3.4 g/dL (2.4-3.5); Glucose 117 mg/dL (80-115); Protein, Total 7.1 g/dL (5.8-8.1); Sodium 138 mmol/L (136-145)
[2022-11-28] MEDS ORDERED: Dicyclomine 20 MG/2 ML VIAL ONE (22:43)
== END 2022-11-28 23:20 | disposition home or self-care (01) ==
LOC: ERS 20:43
DX: R07.9 Chest pain, unspecified (principal); K21.9 Gastro-esophageal reflux disease without esophagitis; E78.00 Pure hypercholesterolemia, unspecified; F17.210 Nicotine dependence, cigarettes, uncomplicated
CPT/HCPCS: 71045; 71275; 80053; 83605; 83880; 84484; 85025; 93005; 96372; 96374; J3010; Q9967

== ENCOUNTER 2022-12-01 15:17 | Emergency (ER) | payer OTHER ==
[~2022-12-01 15:17] MED LIST changes: +Iopamidol 370 76% 100 ML VIAL ONE; -Iopamidol-370 76% 500 ML MDV (1 ML CHARGE) ONE
[2022-12-01] MEDS ORDERED: Promethazine 25 MG TAB ONE (16:30)
[2022-12-01 17:17] LABS: Bilirubin Negative (Negative); Blood, Urine Negative (Negative); Glucose, Urine (Dipstick) Negative (Negative); Ketone, Urine Negative (Negative); Leukocyte Small (Negative); Nitrite Positive (Negative); Protein, Urine (Dipstick) Negative (Neg-Trace); Specific Gravity, Urine 1.025 (1.005-1.030); Urobilinogen 0.2 mg/dL (Less than 2)
[2022-12-01 17:19] LABS: Clarity Hazy (Clear)
[2022-12-01 17:23] LABS: #Eosinphils 0.4 thou/uL (0.0-0.7); #Lymphocytes 2.7 thou/uL (1.20-3.40); #Monocytes 0.5 thou/uL (0.11-0.59); #Neutrophils 2.8 thou/uL (1.40-6.50); %Basophils 0.7 % (0.0-1.0); %Eosinophils 5.6 % (0.0-10.0); %Lymphocytes 42.1 % (21.0-51.0); %Monocytes 7.5 % (0.0-10.0); %Neutrophils 44.1 % (42.0-75.0); Mean Corpuscular HGB CONC 31.7 g/dL (32.0-36.0); Mean Corpuscular Hemoglobin 26.2 pg (27.0-31.0); Mean Corpuscular Volume 82.7 fl (78.0-98.0); Mean Platelet Volume 8.6 fL (7.4-10.4); Platelet Count 186 10x3/uL (130-400); RBC Distribution Width 16.6 % (11.5-14.5); White Blood Cell (WBC) Count 6.4 10x3/uL (4.8-10.8)
[2022-12-01 17:23] LABS: RBC/HPF 0-3 HPF (0-3)
[2022-12-01 17:24] LABS: Bacteria/HPF 4+ HPF (None Seen)
[2022-12-01 17:43] LABS: ALT (SGPT) 10 U/L (8-55); AST (SGOT) 21 U/L (5-34); Albumin 3.9 g/dL (3.4-4.8); Alkaline Phosphatase 105 U/L (40-110); Anion Gap 15 mmol/L (10-20); BUN (Urea Nitrogen) 6 mg/dL (9.8-20.1); Bilirubin, Total 0.8 mg/dL (0.2-1.2); Calc. Creatinine Clearance 0 mL/min (70-130); Calcium 10.4 mg/dL (7.8-10.44); Carbon Dioxide 23 mmol/L (23-31); Chloride 105 mmol/L (98-107); Estimated GFR 85; Globulin 3.5 g/dL (2.4-3.5); Glucose 104 mg/dL (80-115); Potassium 3.6 mmol/L (3.5-5.1); Protein, Total 7.4 g/dL (5.8-8.1); Sodium 139 mmol/L (136-145)
[2022-12-01 18:05] LABS: Lipase 25 U/L (8-78); Magnesium 1.8 mg/dL (1.6-2.6)
== END 2022-12-01 20:19 | disposition home or self-care (01) ==
LOC: ERS 15:17
DX: N39.0 Urinary tract infection, site not specified (principal); E78.00 Pure hypercholesterolemia, unspecified; K21.9 Gastro-esophageal reflux disease without esophagitis
CPT/HCPCS: 36415; 71045; 74177; 80053; 81003; 81015; 83690; 83735; 85025; 93005; 94760; 96374; J1956; Q0169; Q9967

== ENCOUNTER 2022-12-07 22:04 | Emergency (ER) | payer OTHER ==
[2022-12-07 23:58] LABS: #Eosinphils 0.3 thou/uL (0.0-0.7); #Monocytes 0.6 thou/uL (0.11-0.59); #Neutrophils 3.2 thou/uL (1.40-6.50); %Basophils 0.6 % (0.0-1.0); %Eosinophils 4.6 % (0.0-10.0); %Lymphocytes 38.6 % (21.0-51.0); %Monocytes 8.7 % (0.0-10.0); %Neutrophils 47.4 % (42.0-75.0); Hemoglobin 10.8 g/dL (12.0-16.0); Mean Corpuscular Hemoglobin 25.5 pg (27.0-31.0); Mean Corpuscular Volume 82.3 fl (78.0-98.0); Mean Platelet Volume 10.3 fL (7.4-10.4); Platelet Count 160 10x3/uL (130-400); RBC Distribution Width 17.1 % (11.5-14.5); Red Blood Cell (RBC) Count 4.23 mill/uL (4.20-5.40); White Blood Cell (WBC) Count 6.8 10x3/uL (4.8-10.8)
[2022-12-08 00:16] LABS: ALT (SGPT) 8 U/L (8-55); AST (SGOT) 16 U/L (5-34); Albumin 3.6 g/dL (3.4-4.8); Alkaline Phosphatase 106 U/L (40-110); Anion Gap 13 mmol/L (10-20); BUN (Urea Nitrogen) 10 mg/dL (9.8-20.1); Bilirubin, Total 0.6 mg/dL (0.2-1.2); Calc. Creatinine Clearance 0 mL/min (70-130); Carbon Dioxide 23 mmol/L (23-31); Chloride 104 mmol/L (98-107); Estimated GFR 91; Globulin 3.5 g/dL (2.4-3.5); Glucose 110 mg/dL (80-115); Lipase 27 U/L (8-78); Potassium 3.8 mmol/L (3.5-5.1); Protein, Total 7.1 g/dL (5.8-8.1); Sodium 136 mmol/L (136-145)
[2022-12-08] MEDS ORDERED: Promethazine 25 MG TAB ONE (02:50)
== END 2022-12-08 03:33 | disposition home or self-care (01) ==
LOC: ERS 22:04
DX: R11.2 Nausea with vomiting, unspecified (principal); E78.00 Pure hypercholesterolemia, unspecified; K21.9 Gastro-esophageal reflux disease without esophagitis
CPT/HCPCS: 36415; 74177; 80053; 83690; 85025; Q0169; Q9967

== ENCOUNTER 2023-02-28 03:09 | Emergency (ER) | payer OTHER ==
[2023-02-28 07:21] LABS: #Eosinphils 0.1 thou/uL (0.0-0.7); #Monocytes 1.1 thou/uL (0.11-0.59); %Basophils 0.3 % (0.0-1.0); %Lymphocytes 25.7 % (21.0-51.0); %Monocytes 8.5 % (0.0-10.0); %Neutrophils 64.1 % (42.0-75.0); Hemoglobin 12.1 g/dL (12.0-16.0); Mean Corpuscular HGB CONC 31.5 g/dL (32.0-36.0); Mean Corpuscular Hemoglobin 26.5 pg (27.0-31.0); Mean Platelet Volume 10.6 fL (7.4-10.4); Platelet Count 214 10x3/uL (130-400); RBC Distribution Width 17.3 % (11.5-14.5); Red Blood Cell (RBC) Count 4.57 mill/uL (4.20-5.40); White Blood Cell (WBC) Count 12.5 10x3/uL (4.8-10.8)
[2023-02-28 07:49] LABS: ALT (SGPT) 8 U/L (8-55); AST (SGOT) 13 U/L (5-34); Alkaline Phosphatase 93 U/L (40-110); Anion Gap 11 mmol/L (10-20); BUN (Urea Nitrogen) 11 mg/dL (9.8-20.1); Bilirubin, Total 0.7 mg/dL (0.2-1.2); Calc. Creatinine Clearance 0 mL/min (70-130); Calcium 10.6 mg/dL (7.8-10.44); Carbon Dioxide 27 mmol/L (23-31); Chloride 104 mmol/L (98-107); Estimated GFR 92; Globulin 3.3 g/dL (2.4-3.5); Glucose 106 mg/dL (80-115); Protein, Total 7.3 g/dL (5.8-8.1); Sodium 139 mmol/L (136-145)
[2023-02-28] MEDS ORDERED: cefTRIAXone (ROCEPHIN) 1 GM VIAL ONE (07:55)
[2023-02-28] MEDS ORDERED: Morphine 4 MG/ML VIAL ONE (07:55)
[2023-02-28] MEDS ORDERED: Promethazine HCl 25 MG/ML VIAL ONE (09:03)
[2023-02-28] MEDS ORDERED: HYDROmorphone 0.5 MG/0.5 ML SYRINGE ONE (09:24)
[2023-02-28 09:36] LABS: Lipase 16 U/L (8-78); Magnesium 1.8 mg/dL (1.6-2.6)
[2023-02-28 11:24] LABS: Bacteria/HPF 4+ HPF (None Seen); Bilirubin Negative (Negative); Blood, Urine Negative (Negative); CAUTI Indications for Culture Pelvic or flank pain; Clarity Clear (Clear); Glucose, Urine (Dipstick) Normal (Negative); Ketone, Urine Negative (Negative); Leukocyte 25 Leu/uL (Negative); Nitrite Negative (Negative); Protein, Urine (Dipstick) Negative (Neg-Trace); RBC/HPF None Seen HPF (0-3); Specific Gravity, Urine 1.006 (1.002-1.036); Urobilinogen Normal mg/dL (Less than 2); pH, Urine 6.5 (5.0-9.0)
[2023-02-28 11:26] LABS: Urine Culture Reflex No No
== END 2023-02-28 12:23 | disposition home or self-care (01) ==
LOC: ERS 03:09
DX: L03.314 Cellulitis of groin (principal); B37.31 Acute candidiasis of vulva and vagina; K21.9 Gastro-esophageal reflux disease without esophagitis; E78.00 Pure hypercholesterolemia, unspecified
CPT/HCPCS: 36415; 51701; 71045; 80053; 81001; 83605; 83690; 83735; 83880; 84484; 85025; 87040; 93005; 96365; 96367; 96375; J0696; J1170; J2270; J2550

== ENCOUNTER 2023-03-20 03:45 | Emergency (ER) | payer OTHER ==
[2023-03-20] MEDS ORDERED: Morphine 4 MG/ML VIAL ONE (04:15)
[2023-03-20] MEDS ORDERED: Promethazine HCl 25 MG/ML VIAL ONE (04:15)
[2023-03-20 04:48] LABS: %Basophils 0.8 % (0.0-1.0); %Eosinophils 4.1 % (0.0-10.0); %Lymphocytes 35.9 % (21.0-51.0); Hematocrit 38.1 % (36.0-47.0); Mean Corpuscular HGB CONC 31.5 g/dL (32.0-36.0); Mean Corpuscular Hemoglobin 26.5 pg (27.0-31.0); Mean Corpuscular Volume 84.1 fl (78.0-98.0); Mean Platelet Volume 9.8 fL (7.4-10.4); Platelet Count 280 10x3/uL (130-400); RBC Distribution Width 15.9 % (11.5-14.5); Red Blood Cell (RBC) Count 4.53 mill/uL (4.20-5.40); White Blood Cell (WBC) Count 8.9 10x3/uL (4.8-10.8)
[2023-03-20 04:49] LABS: #Basophils 0.1 thou/uL (0.0-0.2); #Eosinphils 0.4 thou/uL (0.0-0.7); #Monocytes 0.5 thou/uL (0.11-0.59); #Neutrophils 4.7 thou/uL (1.40-6.50)
[2023-03-20 05:11] LABS: ALT (SGPT) Less than 7 U/L (8-55); AST (SGOT) 16 U/L (5-34); Albumin 3.8 g/dL (3.4-4.8); Alkaline Phosphatase 104 U/L (40-110); Anion Gap 12 mmol/L (10-20); BUN (Urea Nitrogen) 10 mg/dL (9.8-20.1); Bilirubin, Total 0.5 mg/dL (0.2-1.2); Calc. Creatinine Clearance 0 mL/min (70-130); Calcium 11.4 mg/dL (7.8-10.44); Carbon Dioxide 27 mmol/L (23-31); Chloride 102 mmol/L (98-107); Estimated GFR 76; Globulin 3.6 g/dL (2.4-3.5); Glucose 101 mg/dL (80-115); Lipase 20 U/L (8-78); Potassium 3.7 mmol/L (3.5-5.1); Protein, Total 7.4 g/dL (5.8-8.1); Sodium 137 mmol/L (136-145)
[2023-03-20 05:15] LABS: Troponin I Less than 0.010 ng/mL (< 0.028)
[2023-03-20 07:20] LABS: Bilirubin Negative (Negative); Blood, Urine Negative (Negative); CAUTI Indications for Culture Pelvic or flank pain; Clarity Clear (Clear); Glucose, Urine (Dipstick) Normal (Negative); Ketone, Urine Negative (Negative); Leukocyte Negative Leu/uL (Negative); Nitrite 1+ (Negative); Protein, Urine (Dipstick) Negative (Neg-Trace); RBC/HPF 0-3 HPF (0-3); Specific Gravity, Urine 1.014 (1.002-1.036); Squamous Epithelial 0-3 HPF (0-3); Urobilinogen Normal mg/dL (Less than 2); pH, Urine 6.5 (5.0-9.0)
[2023-03-20 07:22] LABS: Bacteria/HPF 1+ HPF (None Seen)
[2023-03-20 07:23] LABS: Urine Culture Reflex No No
[2023-03-20] MEDS ORDERED: Iopamidol 370 76% 100 ML VIAL ONE (11:55)
[2023-03-20] MEDS ORDERED: GASTROGRAFIN 30 ML BOT ONE (11:55)
== END 2023-03-20 07:54 | disposition home or self-care (01) ==
LOC: ERS 03:45
DX: N39.0 Urinary tract infection, site not specified (principal); R11.0 Nausea; K21.9 Gastro-esophageal reflux disease without esophagitis; E78.00 Pure hypercholesterolemia, unspecified
CPT/HCPCS: 71045; 74177; 80053; 81001; 83605; 83690; 84484; 85025; 85379; 93005; 96374; 96375; J2270; J2550; Q9963; Q9967

== ENCOUNTER 2023-04-07 13:23 | Emergency (ER) | payer OTHER ==
[2023-04-07] MEDS ORDERED: Acetaminophen 500 MG TAB ONE (15:22)
[2023-04-07] MEDS ORDERED: Fluconazole 100 MG TAB PO SCH (15:45)
== END 2023-04-07 16:10 | disposition home or self-care (01) ==
LOC: ERS 13:23
DX: B35.4 Tinea corporis (principal); E78.00 Pure hypercholesterolemia, unspecified; K21.9 Gastro-esophageal reflux disease without esophagitis; F17.210 Nicotine dependence, cigarettes, uncomplicated
CPT/HCPCS: 99283

== ENCOUNTER 2023-12-08 22:26 | Emergency (ER) | payer OTHER | END 2023-12-09 09:10 | LOC: ERS 22:26 | DX: L03.116 Cellulitis of left lower limb (principal); N39.0 Urinary tract infection, site not specified; R60.0 Localized edema; I10 Essential (primary) hypertension; F17.210 Nicotine dependence, cigarettes, uncomplicated | CPT/HCPCS: 36415; 71045; 80053; 81001; 83880; 84484; 85025; 87040; 93005; 93970; 96365; 96375; J0696; J2270; J3490 ==

== ENCOUNTER 2024-01-12 14:25 | Inpatient (IN) | payer OTHER ==
[2024-01-12] MEDS ORDERED: Dicyclomine 20 MG TAB ONE (15:57)
[2024-01-12] MEDS ORDERED: Acetaminophen 325 MG TAB ONE (15:57)
[2024-01-12 16:00] LABS: #Basophils 0.03 10x3/uL (0.0-0.2); %Basophils 0.4 % (0.0-1.0); %Eosinophils 1.6 % (0.0-10.0); %Lymphocytes 17.3 % (21.0-51.0); %Monocytes 5.6 % (0.0-10.0); %Neutrophils 74.8 % (42.0-75.0); Hematocrit 31.1 % (36.0-47.0); Hemoglobin 9.6 g/dL (12.0-16.0); Mean Corpuscular HGB CONC 30.9 g/dL (32.0-36.0); Mean Corpuscular Hemoglobin 25.1 pg (27.0-31.0); Mean Corpuscular Volume 81.2 fL (78.0-98.0); Mean Platelet Volume 9.7 fL (7.4-10.4); Platelet Count 205 10x3/uL (130-400); Red Blood Cell (RBC) Count 3.83 mill/uL (4.20-5.40)
[2024-01-12 16:15] LABS: ALT (SGPT) 6 U/L (8-55); AST (SGOT) 13 U/L (5-34); Albumin 3.5 g/dL (3.4-4.8); Alkaline Phosphatase 95 U/L (40-110); Anion Gap 13 mmol/L (10-20); BUN (Urea Nitrogen) 12 mg/dL (9.8-20.1); Bilirubin, Total 0.6 mg/dL (0.2-1.2); Calc. Creatinine Clearance 0 mL/min (70-130); Calcium 9.7 mg/dL (7.8-10.44); Carbon Dioxide 21 mmol/L (23-31); Chloride 106 mmol/L (98-107); Estimated GFR 83; Globulin 3.6 g/dL (2.4-3.5); Glucose 117 mg/dL (80-115); Lipase 11 U/L (8-78); Potassium 4.1 mmol/L (3.5-5.1); Protein, Total 7.1 g/dL (5.8-8.1); Sodium 136 mmol/L (136-145)
[2024-01-12 16:20] LABS: Troponin I Less than 0.010 ng/mL (< 0.028)
[2024-01-12] MEDS ORDERED: Ondansetron PF 4 MG/2 ML Vial ONE (17:37)
[2024-01-12] MEDS ORDERED: Morphine 4 MG/ML VIAL ONE ×2 (17:37→21:50)
[2024-01-12 20:21] LABS: Bacteria/HPF 1+ HPF (None Seen); Bilirubin Negative (Negative); Blood, Urine 1+ (Negative); CAUTI Indications for Culture Fever or rigors; Clarity Clear (Clear); Glucose, Urine (Dipstick) Normal (Negative); Ketone, Urine Negative (Negative); Leukocyte 250 Leu/uL (Negative); Nitrite Negative (Negative); Protein, Urine (Dipstick) 10 mg/dL (Neg-Trace); Specific Gravity, Urine 1.012 (1.002-1.036); Squamous Epithelial 0-3 HPF (0-3); Urobilinogen Normal mg/dL (Less than 2); pH, Urine 7.5 (5.0-9.0)
[2024-01-12 20:23] LABS: Urine Culture Reflex No No
[2024-01-12] MEDS ORDERED: Ondansetron PF 4 MG/2 ML Vial IVP PRN ×3 (21:30→23:08)
[2024-01-12] MEDS ORDERED: Acetaminophen 325 MG TAB PO PRN ×2 (21:30→23:03)
[2024-01-12] MEDS ORDERED: Ondansetron ODT 4 MG TAB SL PRN (21:30)
[2024-01-12] MEDS ORDERED: Pantoprazole 40 MG VIAL ONE (21:50)
[2024-01-12] MEDS ORDERED: Ondansetron ODT 4 MG TAB PO PRN (23:03)
[2024-01-12] MEDS ORDERED: Acetaminophen 650 MG Suppository PR PRN (23:03)
[2024-01-12] MEDS ORDERED: Benzocaine/Menthol 1 LOZ LOZ PO PRN (23:33)
[2024-01-13 00:15] VITALS: BMI 38.3
[2024-01-13] MEDS: Sodium Chloride 0.9% 1,000 ML IV SCH (00:53)
[2024-01-13] MEDS: cefTRIAXone\\ROCEPHIN 1 GM in Sodium Chloride 0.9% 100 ML IVPB SCH (01:07)
[2024-01-13] MEDS: Promethazine HCl 12.5 MG in Sodium Chloride 0.9% 50 ML IVPB SCH (01:30)
[2024-01-13] MEDS: Lidocaine 2% Viscous Solution 10 ML, Aluminum & Magnesium Hydroxide 30 ML SSW SCH (01:30)
[2024-01-13] MEDS ORDERED: Dextrose 5% in Water 1,000 ML IV PRN (01:47)
[2024-01-13] MEDS ORDERED: Glucagon 1 MG/ML KIT IM PRN (01:47)
[2024-01-13] MEDS ORDERED: Dextrose 50% Abboject 50 ML SYRINGE SLOW IVP PRN (01:47)
[2024-01-13] MEDS: Promethazine HCl 12.5 MG in Sodium Chloride 0.9% 50 ML IVPB PRN (02:38)
[2024-01-13] MEDS: Morphine 2 MG/ML VIAL SLOW IVP SCH (09:47)
[2024-01-13] MEDS: Polyethylene Glycol 3350 17 GM Packet PO SCH (09:48)
[2024-01-13] MEDS: DULoxetine 60 MG CAP PO SCH (09:48)
[2024-01-13 10:39] LABS: #Basophils 0.03 10x3/uL (0.0-0.2); %Basophils 0.5 % (0.0-1.0); %Eosinophils 3.8 % (0.0-10.0); %Lymphocytes 24.7 % (21.0-51.0); %Monocytes 6.3 % (0.0-10.0); %Neutrophils 64.4 % (42.0-75.0); Hematocrit 30.5 % (36.0-47.0); Hemoglobin 9.3 g/dL (12.0-16.0); Mean Corpuscular HGB CONC 30.5 g/dL (32.0-36.0); Mean Corpuscular Hemoglobin 24.9 pg (27.0-31.0); Mean Corpuscular Volume 81.6 fL (78.0-98.0); Mean Platelet Volume 9.6 fL (7.4-10.4); Platelet Count 189 10x3/uL (130-400); Red Blood Cell (RBC) Count 3.74 mill/uL (4.20-5.40)
[2024-01-13 11:01] LABS: Anion Gap 15 mmol/L (10-20); BUN (Urea Nitrogen) 11 mg/dL (9.8-20.1); Calc. Creatinine Clearance 133 mL/min (70-130); Calcium 9.2 mg/dL (7.8-10.44); Carbon Dioxide 18 mmol/L (23-31); Chloride 110 mmol/L (98-107); Estimated GFR 85; Glucose 108 mg/dL (80-115); Potassium 3.9 mmol/L (3.5-5.1); Sodium 139 mmol/L (136-145)
[2024-01-13] MEDS: HYDROmorphone 0.5 MG/0.5 ML SYRINGE SLOW IVP SCH (11:16)
[2024-01-13 16:06] LABS: Hematocrit 28.6 % (36.0-47.0); Hemoglobin 8.8 g/dL (12.0-16.0)
[2024-01-13] MEDS: Morphine 2 MG/ML VIAL SLOW IVP PRN (16:21)
[2024-01-13] MEDS: Bisacodyl 10 MG SUPP PR SCH (18:45)
[2024-01-13] MEDS: Fleet Saline Enema 133 ML BOT PR SCH (18:45)
[2024-01-13] MEDS: Promethazine 25 MG TAB PO PRN (19:43)
[2024-01-13] MEDS: Gabapentin 100 MG CAP PO SCH (20:35)
[2024-01-13 23:31] LABS: Hematocrit 31.3 % (36.0-47.0); Hemoglobin 9.8 g/dL (12.0-16.0)
[2024-01-14 05:18] LABS: Anion Gap 16 mmol/L (10-20); BUN (Urea Nitrogen) 9 mg/dL (9.8-20.1); Calc. Creatinine Clearance 132 mL/min (70-130); Calcium 9.7 mg/dL (7.8-10.44); Carbon Dioxide 20 mmol/L (23-31); Chloride 107 mmol/L (98-107); Estimated GFR 83; Glucose 92 mg/dL (80-115); Potassium 3.3 mmol/L (3.5-5.1); Sodium 140 mmol/L (136-145)
[2024-01-14 05:27] LABS: #Basophils 0.04 10x3/uL (0.0-0.2); %Basophils 0.5 % (0.0-1.0); %Eosinophils 4.9 % (0.0-10.0); %Lymphocytes 37.1 % (21.0-51.0); %Monocytes 8.6 % (0.0-10.0); %Neutrophils 48.6 % (42.0-75.0); Hemoglobin 9.5 g/dL (12.0-16.0); Mean Corpuscular HGB CONC 30.6 g/dL (32.0-36.0); Mean Corpuscular Hemoglobin 24.1 pg (27.0-31.0); Mean Corpuscular Volume 78.5 fL (78.0-98.0); Platelet Count 227 10x3/uL (130-400); RBC Distribution Width 14.9 % (11.5-14.5); Red Blood Cell (RBC) Count 3.95 mill/uL (4.20-5.40)
[2024-01-14 08:35] VITALS: BP 112/67; TEMP 98.7
[2024-01-14] MEDS: Pantoprazole 40 MG VIAL IVP SCH (12:56)
[2024-01-14] MEDS: Potassium Chloride 20 MEQ TAB PO SCH (13:35)
== END 2024-01-14 15:30 | disposition home health service (06) | DRG 392 ==
LOC: ERS 14:25 → MSONC 21:24 → OBSVTOIN 01-13 16:49
PROVIDERS: ADMIT Student in an Organized Health Care Education/Training Program; ATTEND Internal Medicine
DX: K59.00 Constipation, unspecified (principal); N39.0 Urinary tract infection, site not specified; R82.71 Bacteriuria; N32.89 Other specified disorders of bladder; I10 Essential (primary) hypertension; E03.9 Hypothyroidism, unspecified; N32.0 Bladder-neck obstruction; F32.A Depression, unspecified; Z90.49 Acquired absence of other specified parts of digestive tract; Z98.890 Other specified postprocedural states; Z98.84 Bariatric surgery status; Z55.6 Problems related to health literacy; Z91.199 Patient's noncompliance with other medical treatment and regimen due to unspecified reason; Z88.1 Allergy status to other antibiotic agents; Z88.8 Allergy status to other drugs, medicaments and biological substances; Z91.040 Latex allergy status; Z88.0 Allergy status to penicillin; Z79.899 Other long term (current) drug therapy
CPT/HCPCS: 36415; 36416; 74019; 80048; 80053; 81001; 83605; 83690; 84484; 85025; 87086; 93005; 96365; 96374; 96375; 96376; C9113; G0378; J0696; J1170; J2270; J2272; J2405; J2550; J3490; J7050; Q0169

== ENCOUNTER 2024-03-31 19:01 | Emergency (ER) | payer OTHER ==
[2024-03-31 20:21] LABS: #Basophils 0.03 10x3/uL (0.0-0.2); %Basophils 0.4 % (0.0-1.0); %Eosinophils 3.4 % (0.0-10.0); %Lymphocytes 38.2 % (21.0-51.0); %Monocytes 8.5 % (0.0-10.0); %Neutrophils 49.3 % (42.0-75.0); Hematocrit 31.7 % (36.0-47.0); Hemoglobin 9.8 g/dL (12.0-16.0); Mean Corpuscular HGB CONC 30.9 g/dL (32.0-36.0); Mean Corpuscular Hemoglobin 24.1 pg (27.0-31.0); Mean Corpuscular Volume 77.9 fL (78.0-98.0); Mean Platelet Volume 10.3 fL (7.4-10.4); Platelet Count 231 10x3/uL (130-400); RBC Distribution Width 19.2 % (11.5-14.5); Red Blood Cell (RBC) Count 4.07 mill/uL (4.20-5.40)
[2024-03-31 20:55] LABS: ALT (SGPT) 9 U/L (8-55); AST (SGOT) 17 U/L (5-34); Albumin 3.4 g/dL (3.4-4.8); Alkaline Phosphatase 76 U/L (40-110); Anion Gap 12 mmol/L (10-20); BUN (Urea Nitrogen) 7 mg/dL (9.8-20.1); Bilirubin, Total 0.7 mg/dL (0.2-1.2); CK (CPK) 118 U/L (29-168); Calc. Creatinine Clearance 0 mL/min (70-130); Calcium 10.1 mg/dL (7.8-10.44); Carbon Dioxide 23 mmol/L (23-31); Chloride 107 mmol/L (98-107); Estimated GFR 61; Glucose 108 mg/dL (80-115); Protein, Total 6.4 g/dL (5.8-8.1); Sodium 139 mmol/L (136-145)
[2024-03-31 20:57] LABS: Acetaminophen Less than 10 mcg/mL (Less than 10); Alcohol Less than 10.0 mg/dL (Less than 10); Salicylate Less than 8.0 mg/dL (Less than 8.0)
[2024-04-01] MEDS ORDERED: Potassium Bicarbonate/Cit Ac 25 MEQ TAB ONE (00:21)
[2024-04-01 07:21] LABS: Bacteria/HPF 2+ HPF (None Seen); Bilirubin Negative (Negative); Blood, Urine Negative (Negative); CAUTI Indications for Culture Pelvic or flank pain; Glucose, Urine (Dipstick) Normal (Negative); Ketone, Urine Negative (Negative); Leukocyte 500 Leu/uL (Negative); Nitrite Negative (Negative); Protein, Urine (Dipstick) 10 mg/dL (Neg-Trace); RBC/HPF 0-3 HPF (0-3); Specific Gravity, Urine 1.008 (1.002-1.036); Urobilinogen Normal mg/dL (Less than 2); WBC/HPF 21-50 HPF (0-3); pH, Urine 5.5 (5.0-9.0)
[2024-04-01 07:22] LABS: Clarity Slightly Cloudy (Clear)
[2024-04-01 07:23] LABS: Urine Culture Reflex Yes Yes
[2024-04-01 07:27] LABS: Amphetamine Not Detected (NotDetected); Barbiturates Screen Not Detected (NotDetected); Benzodiazepine Screen Not Detected (NotDetected); Cocaine Metabolite Screen Not Detected (NotDetected); Methadone Not Detected (NotDetected); Methamphetamine Not Detected (NotDetected); Opiate Screen Not Detected (NotDetected); Oxycodone Screen Not Detected (NotDetected); Phencyclidine (PCP) Not Detected (NotDetected); THC/Cannabinoid Screen Not Detected (NotDetected); Tricyclic Screen Not Detected (NotDetected)
== END 2024-04-01 13:04 ==
LOC: ERS 19:01
DX: R45.851 Suicidal ideations (principal); I10 Essential (primary) hypertension; R73.03 Prediabetes; F17.210 Nicotine dependence, cigarettes, uncomplicated
CPT/HCPCS: 36415; 80053; 80306; 80307; 81001; 82550; 84443; 85025; 87086; 93005